=== PATIENT | male | born 1955 | race African-American/Black ===

== ENCOUNTER 2020-01-21 14:54 | Inpatient (IN) | payer OTHER ==
--- OUTSIDE RECORDS SUMMARY | 2020-01-21 14:56 | XMS REPORT | Clinical Summary ---
:1955 Author Organization [facility] Address [address] [place] [address] Care Team Providers Name Role Phone DIANNA Minersurveillance supervisor Provider Unavailable Allergies Active Allergy Reactions Severity Noted Date Comments Penicillins 08/17/2016 Medications Medication Sig Dispensed Refills Start Date End Date Status esomeprazole (NexIUM) 40 Take 40 mg by 1 06/20/2016 Active MG capsule mouth once daily. irbesartan (AVAPRO) 150 Take 150 mg by 1 06/02/2016 Active MG tablet mouth 2 (two) times a day. CIALIS 20 mg tablet as needed. 6 07/17/2016 Active phentermine (ADIPEX-P) Take 37.5 mg by 2 06/19/2016 Active 37.5 mg tablet mouth once daily. glycopyrrolate (ROBINUL) Take 2 mg by 0 07/31/2016 Active 2 MG tablet mouth 2 (two) times a day. clonIDINE (CATAPRES) 0.1 TAKE 1 TABLET BY 0 08/08/19 17 Active MG tablet MOUTH EVERY 8 HOURS NEEDED FOR BLOOD PRESSURE>170/100 Active Problems No known active problems Family History Medical History Relation Name Comments Heart attack Father Hypertension Mother Relation Name Status Comments Father Mother Social History Tobacco Use Types Packs/Day Years Used Date Never Smoker Alcohol Use Drinks/Week oz/Week Comments Yes occasional Sex Assigned at Date Recorded Not on file Job Start Date Occupation Industry Not on file Not on file Not on file Travel History Travel Start Travel End No recent travel history available. Last Filed Vital Signs Not on file Plan of Treatment Health Maintenance Due Date Last Done Comments COLONOSCOPY SCREENING 2004 SHINGLES VACCINES (#1) 2004 65+ PNEUMOCOCCAL VACCINE (1 of 2 - PCV13) 2019 INFLUENZA VACCINE 02/10/2020 Results Not on fileafter 01/20/2019 Advance Directives For more information, please contact: [phone] Type Date Recorded Patient Retail Warehouse Supervisor Explanati on Advance Directives, Living Will and Medical Power of Curriculum And Assessment Coordinator
[2020-01-21] MEDS ORDERED: dexAMETHasone 10 MG/ML VIAL ONE (15:39)
[2020-01-21 16:20] LABS: Absolute Lymphocytes (CBC) 0.7 K/uL (0.7-4.9); Basophils % 0.5 % (0-1.3); Hematocrit 48.6 % (39.6-49.0); Lymphocytes % 8.3 % (15.3-44.8); RBC Red Blood Cell Count 5.64 M/uL (4.33-5.43)
--- NOTE | 2020-01-21 16:37 | ER ---
Nurse's Notes [facility] Name: Sanjiv Torres Age: 64 yrs Sex: Male : 1955 Arrival Date: 01/21/2020 Time: 14:56 Bed 7 Private MD: Vi Miner H Diagnosis: Pneumonia due to other specified bacteria;Coronavirus infection, unspecified;Hypoxemia Presentation: 01/20 15:02 Chief complaint: Patient states: SOB, Covid + results today. Tested on Sunday. Pt c/o ks7 continued sob, sp02 90-91% at home, Tmax 101. Coronavirus screen: Client denies travel out of the [place] in the last 14 days. fever, shortness of breath, Client presents with at least one sign or symptom that may indicate coronavirus-19. Standard/surgical mask placed on the client. Client reports previous positive COVID test result. Date of collection: January 18, 2020. Ebola Screen: Patient negative for fever greater than or equal to 101.5 degrees Fahrenheit, and additional compatible Ebola Virus Disease symptoms Patient denies exposure to infectious person. Patient denies travel to an Ebola-affected area in the 21 days before illness onset. Initial Sepsis Screen: Does the patient meet any 2 criteria? No. Patient's initial sepsis screen is negative. Does the patient have a suspected source of infection? No. Patient's initial sepsis screen is negative. Risk Assessment: Do you want to hurt yourself or someone else? Patient reports no desire to harm self or others. Onset of symptoms was January 18, 2020. 15:02 Method Of Arrival: Ambulatory ks7 15:02 Acuity: MARKO 3 ks7 Triage Assessment: 15:05 General: Appears uncomfortable, Behavior is calm, cooperative. Pain: Denies pain. ks7 Respiratory: Reports shortness of breath at rest pain with respiration. Respiratory: Onset: The symptoms/episode began/occurred 1 week, the patient has moderate shortness of breath. GI: No deficits noted. Historical: - Allergies: 15:05 PENICILLINS; ks7 - Home Meds: 15:05 Avapro 75 mg Oral tab 1 tab once daily [Active]; hydrochlorothiazide 12.5 mg Oral cap 1 ks7 cap once daily [Active]; metoprolol tartrate 37.5 mg Oral tab 1 tab once daily [Active]; - PMHx: 15:05 Hypertension; ks7 - PSHx: 15:05 None; ks7 - Immunization history:: Adult Immunizations up to date. - Social history:: Smoking status: Patient denies any tobacco usage or history of. Screenin:02 Abuse screen: Denies threats or abuse. Denies injuries from another. Nutritional jl7 screening: No deficits noted. Tuberculosis screening: No symptoms or risk factors identified. Fall Risk IV access (20 points). Assessment: 15:40 General: Appears in no apparent distress. uncomfortable, Behavior is calm, cooperative, jl7 appropriate for age. Pain: Denies pain. Neuro: Level of Consciousness is awake, alert, obeys commands, Oriented to person, place, time, situation. Cardiovascular: Rhythm is sinus rhythm with unifocal PVCs. Respiratory: Airway is patent Respiratory effort is even, unlabored, Respiratory pattern is regular, symmetrical, not auscultated. GI: Abdomen is round obese. Derm: Skin is pink, warm \T\ dry. 17:01 Reassessment: VO to cancel COVID-19 swab and flu swab from Dr. Riggs. jl7 17:30 Reassessment: Patient appears in no apparent distress at this time. No changes from jl7 previously documented assessment. Patient and/or family updated on plan of care and expected duration. Pain level reassessed. Patient is alert, oriented x 3, equal unlabored respirations, skin warm/dry/pink. Vital Signs: 15:02 BP 134 / 67; Pulse 88; Resp 20; Temp 97.9(TE); Pulse Ox 90% on R/A; Weight 124.74 kg; ks7 Height 5 ft. 10 in. (177.80 cm); Pain 0/10; 16:02 BP 136 / 72; Pulse 77; Resp 23 S; Pulse Ox 95% on 3 lpm NC; jl7 17:30 BP 139 / 77; Pulse 75; Resp 23 S; Pulse Ox 94% on 3 lpm NC; jl7 15:02 Body Mass Index 39.46 (124.74 kg, 177.80 cm) ks7 ED Course: 14:56 Patient arrived in ED. ag5 14:57 Vi Miner DO is Private Physician. ag5 15:05 Triage completed. ks7 15:05 Arm band placed on right wrist. ks7 15:07 Steven Patterson PA is PHCP. cp 15:07 Alexis Ashraf MD is Attending Physician. cp 15:16 Samir Tucker, RN is Primary Nurse. jl7 15:40 Patient has correct armband on for positive identification. Placed in gown. Bed in low jl7 position. Call light in reach. Side rails up X 1. school bus monitor on. Pulse ox on. NIBP on. Warm blanket given. 15:40 Initial lab(s) drawn, by me, sent to lab. EKG done, by ED staff, reviewed by Steven [email or web address] PA. Inserted saline lock: 20 gauge in right antecubital area, using aseptic technique. Blood collected. 15:46 XRAY Chest (1 view) In Process Unspecified. EDMS 16:36 Curry Riggs DO is Hospitalizing Provider. cp 18:04 No provider procedures requiring assistance completed. Patient admitted, IV remains in jl7 place. intact, No redness/swelling at site. Administered Medications: 16:03 Drug: Decadron - Dexamethasone 6 mg Route: IVP; Site: right antecubital; jl7 18:04 Follow up: Response: No adverse reaction jl7 17:05 Not Given (Physician Discretion): Zithromax 500 mg IVPB once over 1 hrs; mix in 250 mL cp NS 17:20 Drug: Decadron - Dexamethasone 2 mg Route: IVP; Site: right antecubital; jl7 18:04 Follow up: Response: No adverse reaction jl7 Outcome: 16:36 Decision to Hospitalize by Provider. cp 18:04 Admitted to ICU accompanied by tech, via wheelchair, room 8, with oxygen, with chart, jl7 Report called to DIANNA Mendoza 18:04 Condition: stable 18:04 Discharge instructions given to patient, Instructed on the need for admit, Demonstrated understanding of instructions. 18:50 Patient left the ED. jl7 Signatures: Dispatcher [employer] EDWI Steven Patterson PA PA cp Leal, Jahala, RN RN [email or web address] Megan Martin 5 Maricruz Vazquez RN RN [email or web address] Corrections: (The following items were deleted from the chart) 18:04 16:02 BP 136 / 72; Pulse 77bpm; Resp 23bpm; Spontaneous; Pulse Ox 95% 2 lpm Nasal jl7 Cannula; jl7
--- NOTE | 2020-01-21 16:37 | EDPHYS ---
Physician Documentation [facility] Name: Sanjiv Torres Age: 64 yrs Sex: Male : 1955 Arrival Date: 01/21/2020 Time: 14:56 Bed 7 Private MD: Vi Miner H ED Physician Alexis Ashraf HPI: 01/20 15:19 This 64 yrs old Black Male presents to ER via Ambulatory with complaints of Shortness cp Of Breath, COVID+. 15:20 The patient has shortness of breath at rest. cp 15:20 Onset: The symptoms/episode began/occurred gradually. Duration: The symptoms are cp continuous, and are steadily getting worse. Associated signs and symptoms: Pertinent positives: non-productive cough, Pertinent negatives: chest pain, diaphoresis, fever, hemoptysis. Patient reports being tested for COVID-19 at [facility] on Sunday with results returning positive today. Historical: - Allergies: 15:05 PENICILLINS; ks7 - Home Meds: 15:05 Avapro 75 mg Oral tab 1 tab once daily [Active]; hydrochlorothiazide 12.5 mg Oral cap 1 ks7 cap once daily [Active]; metoprolol tartrate 37.5 mg Oral tab 1 tab once daily [Active]; - PMHx: 15:05 Hypertension; ks7 - PSHx: 15:05 None; ks7 - Immunization history:: Adult Immunizations up to date. - Social history:: Smoking status: Patient denies any tobacco usage or history of. ROS: 15:25 Respiratory: Positive for cough, shortness of breath, Negative for hemoptysis, wheezing.cp 15:25 Eyes: Negative for injury, pain, redness, and discharge. cp 15:25 Constitutional: Negative for body aches, chills, fever. 15:25 ENT: Negative for ear pain, sore throat, difficulty swallowing, difficulty handling secretions. 15:25 Cardiovascular: Negative for chest pain, edema. 15:25 Abdomen/GI: Negative for abdominal pain, nausea, vomiting, and diarrhea. 15:25 Skin: Negative for rash. 15:25 Neuro: Negative for altered mental status, dizziness, headache, syncope, weakness. 15:25 All other systems are negative. Exam: 15:30 Constitutional: The patient appears in no acute distress, alert, awake, cp non-diaphoretic, non-toxic, well developed, well nourished, obese. 15:30 Head/Face: Normocephalic, atraumatic. cp 15:30 Eyes: Periorbital structures: appear normal, Pupils: equal, round, and reactive to cp light and accomodation, Extraocular movements: intact throughout, Conjunctiva: normal, no exudate, no injection, Sclera: no appreciated abnormality, Lids and lashes: appear normal, bilaterally. 15:30 ENT: External ear(s): are unremarkable, Nose: is normal, Mouth: Lips: moist, Oral mucosa: moist, Posterior pharynx: is normal, airway is patent, no erythema, no exudate. 15:30 Neck: ROM/movement: is normal, is supple, no meningismus, no nuchal rigidity. 15:30 Chest/axilla: Inspection: normal, Palpation: is normal, no crepitus, no tenderness. 15:30 Cardiovascular: Rate: normal, Rhythm: regular, Edema: is not appreciated, JVD: is not appreciated. 15:30 Respiratory: mild respiratory distress is noted, Respirations: labored breathing, that is mild, shallow respirations, that is mild, Breath sounds: bronchial sounds, that are mild, are heard diffusely, stridor, is not appreciated, + upper airway congestion. wheezing: is not appreciated. 15:30 Abdomen/GI: Inspection: abdomen appears normal, Palpation: abdomen is soft and non-tender, in all quadrants. 15:30 Back: pain, is absent, ROM is normal. 15:30 Skin: no rash present. 15:30 Neuro: Orientation: to person, place \T\ time. Mentation: is normal, Motor: moves all fours, strength is normal, Sensation: is normal. 15:55 ECG was reviewed by the Attending Physician. cp Vital Signs: 15:02 BP 134 / 67; Pulse 88; Resp 20; Temp 97.9(TE); Pulse Ox 90% on R/A; Weight 124.74 kg; ks7 Height 5 ft. 10 in. (177.80 cm); Pain 0/10; 16:02 BP 136 / 72; Pulse 77; Resp 23 S; Pulse Ox 95% on 3 lpm NC; jl7 17:30 BP 139 / 77; Pulse 75; Resp 23 S; Pulse Ox 94% on 3 lpm NC; jl7 15:02 Body Mass Index 39.46 (124.74 kg, 177.80 cm) ks7 MDM: 15:18 Patient medically screened. cp 16:00 Differential diagnosis: Myocardial Infarction pneumonia, Pneumothorax pulmonary edema, cp Pulmonary Embolism Sepsis Unstable Angina. 16:34 Physician consultation: Curry Riggs DO was called at 16:35, was contacted at 16:35, cp regarding admission, to the telemetry unit. patient's condition, and will see patient in ED, shortly. 16:35 Data reviewed: vital signs, nurses notes, lab test result(s), EKG, radiologic studies, cp plain films, I have discussed the patient's presentation/case with the attending Emergency Department Physician; and as a result, I will admit patient. 16:35 Test interpretation: by ED physician or midlevel provider: ECG, chest xray shows cp bilateral infiltrates. Counseling: I had a detailed discussion with the patient and/or guardian regarding: the historical points, exam findings, and any diagnostic results supporting the discharge/admit diagnosis, lab results, radiology results, the need for further work-up and treatment in the hospital. 08 15:19 Order name: Basic Metabolic Panel; Complete Time: 16:50 cp 08/12 17:04 Interpretation: Normal except: GLUC 126; CRE 1.42; GFR 61; CA 7.9. cp 08/12 15:19 Order name: CBC with Diff cp 08/12 16:29 Interpretation: Normal except: RBC 5.64; KALPESH% 87.1; LYM% 8.3. cp /12 15:19 Order name: LFT's; Complete Time: 16:50 cp 08/12 15:19 Order name: Magnesium; Complete Time: 16:50 cp /12 15:19 Order name: NT PRO-BNP; Complete Time: 16:50 cp /12 15:19 Order name: PT-INR; Complete Time: 17:03 cp / 15:19 Order name: Troponin (emerg Dept Use Only); Complete Time: 16:50 cp /12 15:19 Order name: CRP; Complete Time: 16:50 cp 08/12 16:50 Interpretation: Abnormal: C-REACTIVE PROT 137.00. cp 01/20 15:19 Order name: D-Dimer; Complete Time: 17:03 cp 08/12 15:19 Order name: Fibrinogen; Complete Time: 17:03 cp 08/12 17:03 Interpretation: Abnormal: FIB 639. cp 08/12 15:19 Order name: XRAY Chest (1 view); Complete Time: 16:50 cp 08/12 15:19 Order name: EKG; Complete Time: 15:20 cp 0812 15:19 Order name: Cardiac monitoring; Complete Time: 15:59 cp 0812 15:19 Order name: EKG - Nurse/Tech; Complete Time: 15:59 cp 0812 15:19 Order name: IV Saline Lock; Complete Time: 15:59 cp 0812 15:19 Order name: Labs collected and sent; Complete Time: 15:59 cp 0812 15:19 Order name: O2 Per Protocol; Complete Time: 15:59 cp 0812 15:19 Order name: O2 Sat Monitoring; Complete Time: 15:59 cp 0812 16:34 Order name: Droplet/Contact Precautions; Complete Time: 16:38 cp 12 18:38 Order name: CBC Smear Scan EDMS EC:55 Rate is 79 beats/min. Rhythm is regular. TX interval is normal. QRS interval is normal. cp QT interval is normal. T waves are Inverted in leads III, aVR. Interpreted by me. Reviewed by me. Administered Medications: 16:03 Drug: Decadron - Dexamethasone 6 mg Route: IVP; Site: right antecubital; jl7 18:04 Follow up: Response: No adverse reaction jl7 17:05 Not Given (Physician Discretion): Zithromax 500 mg IVPB once over 1 hrs; mix in 250 mL cp NS 17:20 Drug: Decadron - Dexamethasone 2 mg Route: IVP; Site: right antecubital; jl7 18:04 Follow up: Response: No adverse reaction jl7 Disposition: 01/21 07:29 Co-signature as Attending Physician, Alexis Ashraf MD I agree with the assessment and kdr plan of care. Disposition: 01/21/20 16:36 Hospitalization ordered by Curry Riggs for Inpatient Admission. Preliminary diagnosis are Pneumonia due to other specified bacteria, Coronavirus infection, unspecified, Hypoxemia. - Bed requested for Intensive Care Unit. - Status is Inpatient Admission. jl7 - Condition is Stable. - Problem is new. - Symptoms have improved. Signatures: Dispatcher [employer] EDPA Melba Alfredo bd Alexis Ashraf MD MD [facility] Steven Patterson PA PA cp Samir Tucker RN RN jl7 Maricruz Vazquez, DIANNA RN ks7 Corrections: (The following items were deleted from the chart) 08 17:00 16:35 CORONAVIRUS ordered. EDPA EDMS 17:00 16:35 Influenza Screen (A ordered. EDPA EDPA 17:04 17:04 Normal except: GLUC 126; CRE 1.42; GFR 61. cp cp 17:13 16:36 Hospitalization Ordered by Curry Riggs DO for Inpatient Admission. Preliminary bd diagnosis is Pneumonia due to other specified bacteria; Coronavirus infection, unspecified; Hypoxemia. Bed requested for Telemetry/MedSurg (Inpatient). Status is Inpatient Admission. Condition is Stable. Problem is new. Symptoms have improved. cp 18:50 17:13 01/21/2020 16:36 Hospitalization Ordered by Curry Riggs DO for Inpatient jl7 Admission. Preliminary diagnosis is Pneumonia due to other specified bacteria; Coronavirus infection, unspecified; Hypoxemia. Bed requested for Intensive Care Unit. Status is Inpatient Admission. Condition is Stable. Problem is new. Symptoms have improved. bd 01/21 02:39 08 19:42 ECG was reviewed by the Attending Physician. cp cp 01/21 02:39 01/20 19:42 Rate is 96 beats/min. Rhythm is regular. TX interval is normal. QRS cp interval is normal. QT interval is normal. T waves are Inverted in lead aVR. Interpreted by me. Reviewed by me. cp 01/21 02:40 01/20 19:42 ECG was reviewed by the Attending Physician. cp cp 01/21 02:40 02:39 Rate is 79 beats/min. Rhythm is regular. TX interval is normal. QRS interval is cp normal. QT interval is normal. T waves are Inverted in leads III, aVR. Interpreted by me. Reviewed by me. cp
[2020-01-21 16:41] LABS: ALT/SGPT 23 U/L (12-78); AST/SGOT 28 U/L (15-37); Albumin 2.9 g/dL (3.4-5.0); Alkaline Phosphatase 43 U/L (45-117); BUN Blood Urea Nitrogen 17 mg/dL (7-18); Bicarbonate 27 mmol/L (21-32); Bilirubin Direct 0.2 mg/dL (0-0.2); Bilirubin Total 0.6 mg/dL (0.2-1.0); Glucose Level 126 mg/dL (74-106); Magnesium 2.1 mg/dL (1.8-2.4); NT PRO-BNP 221 pg/mL (<125); Potassium 3.6 mmol/L (3.5-5.1); Protein, Total 7.3 g/dL (6.4-8.2); Sodium Level 139 mmol/L (136-145); Troponin (Emerg Dept Use Only) < 0.02 ng/mL (0.0-0.045)
--- NOTE | 2020-01-21 16:46 | RAD REPORT ---
EXAM DESCRIPTION: Elly Single View01/21/2020 3:46 pm CLINICAL HISTORY: Chest pain COMPARISON: 1999 FINDINGS: The lungs appear clear of acute infiltrate. The heart is borderline enlarged IMPRESSION: No acute abnormalities displayed
[2020-01-21 16:56] LABS: Protime INR 1.12
--- NOTE | 2020-01-21 17:18 | P.HP ---
Certification for Inpatient Patient admitted to: Inpatient With expected LOS: >2 Midnights Patient will require the following post-hospital care: None Practitioner: I am a practitioner with admitting privileges, knowledge of patient current condition, hospital course, and medical plan of care. Services: Services provided to patient in accordance with Admission requirements found in Title 42 Section 412.3 of the Code of Federal Regulations Patient History Date of Service: 01/21/20 Primary Care Provider: Dr. Miner Reason for admission: Shortness of breath History of Present Illness: 64-year-old male with history of hypertension, sleep apnea and obesity. Patient reported fever and cough over the weekend. He was seen at [facility] on Sunday and released. Since that time he has been having more shortness of breath. Shortness of breath has gotten worse with exertion. He reports that he got a phone call from [facility] explain that he was positive for COVID 19. He reports that his was also tested positive but asymptomatic. He came to the ER for further evaluation. In the ER patient was evaluated. Patient found to have room-air saturations in the lower 80s. Patient required 4 L of nasal cannula. CBC unremarkable. CRP elevated at 137. D-dimer unremarkable. Chest x-ray shows COVID pneumonia pattern. Patient stable at this time. Patient admitted for further evaluation and treatment. When I saw the patient in the ER, patient appeared stable on 4 L. Patient reports history of sleep apnea using CPAP at night. He denies any smoking or alcohol. Allergies Penicillins Allergy (Unverified 09/03/17 10:58) Unknown Home medications list reviewed: Yes - Past Medical/Surgical History Diabetic: No -: Hypertension -: Obstructive sleep apnea on CPAP at night -: Obesity -: Right forearm surgery Psychosocial/ Personal History: Patient is - Family History Family History: Reviewed- Non-Contributory - Social History Smoking Status: Never smoker Alcohol use: No CD- Drugs: No Caffeine use: No Place of Residence: Home Review of Systems General: Fever, As per HPI Eyes: Unremarkable ENT: Unremarkable Respiratory: Cough, Shortness of Breath, SOB with Excertion, As per HPI Cardiovascular: Unremarkable Gastrointestinal: Unremarkable Genitourinary: Unremarkable Musculoskeletal: Unremarkable Integumentary: Unremarkable Neurological: Unremarkable Lymphatics: Unremarkable Physical Examination - Physical Exam General: Alert, In no apparent distress, Oriented x3, Cooperative, Mild distress HEENT: Atraumatic, Mucous membr. moist/pink (Increased nasal drainage) Neck: Supple Respiratory: Diminished (Diminished bilateral) Cardiovascular: Normal pulses, Regular rate/rhythm Gastrointestinal: Normal bowel sounds, Soft and benign, Non-distended, No tenderness, No masses, No rebound, No guarding Musculoskeletal: No erythema, No tenderness, No warmth Integumentary: No tenderness/swelling, No erythema, No warmth, No cyanosis Neurological: Normal speech, Normal strength at 5/5 x4 extr, Normal tone, Normal affect - Studies Laboratory Data (last 24 hrs) 01/21/20 15:57: PT 13.2 H, INR 1.12 01/21/20 15:57: WBC 8.2, Hgb 16.0, Hct 48.6, Plt Count 178 01/21/20 15:57: Sodium 139, Potassium 3.6, BUN 17, Creatinine 1.42 H, Glucose 126 H, Magnesium 2.1, Total Bilirubin 0.6, AST 28, ALT 23, Alkaline Phosphatase 43 L Assessment and Plan - Plan Impression: Dyspnea with exertion secondary to acute respiratory failure with hypoxia related to COVID 19 pneumonia Hypertension Obstructive sleep apnea on CPAP Obesity Plan: Dyspnea with exertion secondary to acute respiratory failure with hypoxia related to COVID 19 pneumonia: Patient will be admitted for further evaluation and treatment. Patient given Decadron in the ER. Will continue with IV steroids at this time. Will provide DVT prophylaxis-Lovenox. Will also provide supplements. Plan of care discussed with patient. He agrees with plan. Continue to wean off oxygen. If required patient may require high-flow oxygen or BiPAP. Patient uses CPAP at night. If the patient continues to worsen will need to consider convalescent plasma or Remdesivir. This was discussed in detail with the patient. Will continue to monitor closely. Will consult pulmonology for further recommendation. Hypertension: Restart metoprolol. Obtain and verify home medication. Obstructive sleep apnea on CPAP: Respiratory to provide BiPAP or CPAP at night. Obesity: Will calculate BMI. Discharge Plan: Home Plan to discharge in: 72 Hours - Advance Directives Does patient have a Living Will: No Does patient have a Durable POA for Healthcare: No - Code Status/Comfort Care Code Status Assessed: Yes (Patient is full code) Time Spent Managing Pts Care (In Minutes): 55
[2020-01-21] MEDS ORDERED: dexAMETHasone 4 MG/ML VIAL ONE (17:27)
[2020-01-21 18:38] LABS: Blood Morphology Comment NOT SEEN (NOT SEEN); Platelet Estimate ADEQ; Urine White Blood Cell Casts OK
[2020-01-21] MEDS ORDERED: ACETAMINOPHEN 500 MG TAB PO PRN (18:55)
[2020-01-21] MEDS ORDERED: ONDANSETRON 4 MG/2 ML VIAL IV PRN (18:55)
[2020-01-21] MEDS: METOPROLOL TAR 25 MG TAB PO SCH (20:44)
[2020-01-21] MEDS: METHYLPREDNISOLONE 125 MG INJ IV SCH ×2 (20:46→23:42)
[2020-01-22] MEDS: METOPROLOL TAR 25 MG TAB PO SCH ×2 (05:42→17:04)
[2020-01-22] MEDS: METHYLPREDNISOLONE 125 MG INJ IV SCH ×3 (05:43→17:04)
[2020-01-22 05:50] LABS: Ferritin 194.3 ng/mL (26-388)
--- NOTE | 2020-01-22 07:29 | EKG ---
Test Date: 2020-01-21 Test Time: 15:46:54 Cereal Chemist: DOM MEASUREMENT RESULTS: Intervals: Rate: 79 NM: 136 QRSD: 90 QT: 372 QTc: 426 Yoder: P: 47 NM: 136 QRS: 23 T: 16 INTERPRETIVE STATEMENTS: Sinus rhythm with premature atrial complexes Minimal voltage criteria for LVH, may be normal variant Borderline ECG Compared to ECG 09/03/2017 09:39:21 Atrial premature complex(es) now present Left ventricular hypertrophy now present Electronically Signed On 01-22-20 07:28:34 CDT by Jerry Parks
[2020-01-22] MEDS: PANTOPRAZOLE 40MG TABLET PO SCH (08:11)
[2020-01-22] MEDS: FOLIC ACID 1 MG TABLET PO SCH (08:11)
[2020-01-22] MEDS: THIAMINE HCL 100 MG TABLET PO SCH (08:11)
[2020-01-22] MEDS: ZINC SULFATE 220 MG CAP PO SCH (08:11)
[2020-01-22] MEDS: ENOXAPARIN 40 MG/0.4 ML SQ SCH (08:11)
--- NOTE | 2020-01-22 08:23 | P.CNS ---
Date of Consult: 01/22/20 Primary Care Provider: Dr. Miner Chief Complaint: Shortness of breath History of Present Illness: Patient is 64 years of age with a history of hypertension sleep apnea obesity admitted with fever cough shortness of breath and was positive for coronal virus was admitted with some respiratory failure is currently doing well Allergies Penicillins Allergy (Verified 01/21/20 23:39) Unknown Home Medications: Irbesartan [Avapro] 1 tab PO DAILY 01/21/20 Metoprolol Tartrate 37.5 mg PO DAILY 01/21/20 hydroCHLOROthiazide [Hydrochlorothiazide] 12.5 mg PO DAILY 01/21/20 - Past Medical/Surgical History Diabetic: No -: Hypertension -: Obstructive sleep apnea on CPAP at night -: Obesity -: Right forearm surgery Psychosocial/ Personal History: Patient is - Social History Alcohol use: No CD- Drugs: No Caffeine use: No Place of Residence: Home Physical Examination Temp Pulse Resp BP Pulse Ox 97.6 F 58 19 118/68 96 01/22/20 04:00 01/22/20 04:00 01/22/20 04:00 01/22/20 04:00 01/22/20 04:00 Laboratory Data (last 24 hrs) 01/21/20 15:57: PT 13.2 H, INR 1.12 01/21/20 15:57: WBC 8.2, Hgb 16.0, Hct 48.6, Plt Count 178 01/21/20 15:57: Sodium 139, Potassium 3.6, BUN 17, Creatinine 1.42 H, Glucose 1 26 H, Magnesium 2.1, Total Bilirubin 0.6, AST 28, ALT 23, Alkaline Phosphatase 43 L - Problems (1) Pneumonia due to human coronavirus Current Visit: Yes Status: Acute Plan: Patient is 64 years of age diagnosed with coronal virus admitted with a pneumonia hypoxemia patient's renal function little abnormal I still have elevated CRP and ferritin levels oxygenation satisfactory chest x-ray shows minimal interstitial changes possible discharge tomorrow
[2020-01-22] MEDS ORDERED: METHYLPREDNISOLONE 125 MG INJ IV ONE (09:00)
--- NOTE | 2020-01-22 12:42 | P.PN ---
Subjective Date of Service: 01/22/20 Primary Care Provider: Dr. Miner Chief Complaint: Shortness of breath Subjective: Doing well (Patient doing better.) Physical Examination - Vital Signs Temperature: 97.6 F Blood Pressure: 170/88 Pulse: 84 Respirations: 20 Pulse Ox (%): 92 - Physical Exam General: Alert, Cooperative HEENT: Atraumatic Neck: Supple Respiratory: Other (Patient on 3 L per nasal cannula) Cardiovascular: Normal pulses Neurological: Normal speech, Normal strength at 5/5 x4 extr, Normal tone, Normal affect - Studies Laboratory Data (last 24 hrs) 01/21/20 15:57: PT 13.2 H, INR 1.12 01/21/20 15:57: WBC 8.2, Hgb 16.0, Hct 48.6, Plt Count 178 01/21/20 15:57: Sodium 139, Potassium 3.6, BUN 17, Creatinine 1.42 H, Glucose 126 H, Magnesium 2.1, Total Bilirubin 0.6, AST 28, ALT 23, Alkaline Phosphatase 43 L Medications List Reviewed: Yes Assessment & Plan Discharge Plan: Home Plan to discharge in: 48 Hours Physician Review Additional Text: Impression: Dyspnea with exertion secondary to acute respiratory failure with hypoxia related to COVID 19 pneumonia Hypertension Obstructive sleep apnea on CPAP Acute renal insufficiency Obesity Plan: Dyspnea with exertion secondary to acute respiratory failure with hypoxia related to COVID 19 pneumonia: Patient appears improved. Continue monitor C reactive protein. Continue with IV steroids. Continue DVT prophylaxis. Case discussed with pulmonology. Will continue to try to wean off oxygen at this josh e. Options for convalescent plasma was addressed in detail with the patient. He understands this is not a definitive treatment. Education will be provided. He will further review and consider convalescent plasma. If agreeable will provide convalescent plasma. Will monitor closely. Encourage ambulation. Encourage incentive spirometer. Home medications reviewed. Will discontinue his medication by glycopyrrolate as this may cause increased pulmonary secretions and side affects. Anticipate improvement over the next 24-48 hr. Hypertension: Continue to adjust metoprolol. Hold Arb inhibitor and hydrochlorothiazide.. Obstructive sleep apnea on CPAP: Respiratory to provide BiPAP or CPAP at night. Acute renal insufficiency: Will recheck BMP tomorrow. Arb inhibitor and hydrochlorothiazide currently on hold. Obesity: BMI 39.5. Lifestyle modification address. Time Spent Managing Pts Care (In Minutes): 55
[2020-01-23] MEDS: METHYLPREDNISOLONE 125 MG INJ IV SCH ×5 (00:30→20:37)
[2020-01-23] MEDS: METOPROLOL TAR 25 MG TAB PO SCH (05:19)
[2020-01-23 06:20] LABS: C-Reactive Protein 69.1 mg/L (<3.00); Ferritin 280.9 ng/mL (26-388); Potassium 4.1 mmol/L (3.5-5.1)
[2020-01-23] MEDS: FOLIC ACID 1 MG TABLET PO SCH (08:03)
[2020-01-23] MEDS: THIAMINE HCL 100 MG TABLET PO SCH (08:03)
[2020-01-23] MEDS: ENOXAPARIN 40 MG/0.4 ML SQ SCH (08:03)
[2020-01-23] MEDS: PANTOPRAZOLE 40MG TABLET PO SCH (08:03)
[2020-01-23] MEDS: ZINC SULFATE 220 MG CAP PO SCH (08:03)
--- NOTE | 2020-01-23 08:12 | P.DS ---
Admission Date: 01/21/20 Discharge Date: 01/23/20 Primary Care Provider: Dr. Miner Disposition: ROUTINE DISCHARGE Discharge Condition: GOOD Reason for Admission: Shortness of breath Consultations: Pulmonary-Dr. Duncan Procedures: CXR: COMPARISON: 1999 FINDINGS: The lungs appear clear of acute infiltrate. The heart is borderline enlarged IMPRESSION: No acute abnormalities displayed Medical Problem List: Dyspnea with exertion secondary to acute respiratory failure with hypoxia related to COVID 19 pneumonia Hypertension Obstructive sleep apnea on CPAP Acute renal insufficiency Obesity Brief History of Present Illness: 64-year-old male with history of hypertension, sleep apnea and obesity. Patient reported fever and cough over the weekend. He was seen at [facility] on Sunday and released. Since that time he has been having more shortness of breath. Shortness of breath has gotten worse with exertion. He reports that he got a phone call from [facility] explain that he was positive for COVID 19. He reports that his was also tested positive but asymptomatic. He came to the ER for further evaluation. In the ER patient was evaluated. Patient found to have room-air saturations in the lower 80s. Patient required 4 L of nasal cannula. CBC unremarkable. CRP elevated at 137. D-dimer unremarkable. Chest x-ray shows COVID pneumonia pattern. Patient stable at this time. Patient admitted for further evaluation and treatment. When I saw the patient in the ER, patient appeared stable on 4 L. Patient reports history of sleep apnea using CPAP at night. He denies any smoking or alcohol. Hospital Course: Patient presented with dyspnea with exertion secondary to acute respiratory failure with hypoxia related to COVID 19 bilateral pneumonia. During the course of his stay patient received IV steroids and supplementation. Patient also required oxygen. His condition improved. Patient able to ambulate but still requires oxygen. Home oxygen will be arranged prior to discharge. At discharge patient still requiring 3 L per nasal cannula. Patient was seen by pulmonology. At discharge patient will have home oxygen arranged. Currently on 3 L per nasal cannula. Maintain oxygen sats above 93%. This can be weaned off over time with the help of pulmonology and PCP. At discharge patient will continue with prednisone 20 mg 1 pill twice daily for 5 days then 1 pill once daily for 5 days. Patient will continue with supplementation including melatonin 3 mg at bedtime, thiamine 100 mg daily and vitamin C daily. At discharge patient will continue with quarantine at home. Patient will continue with CDC guidelines. Recommend to maintain social distancing, face mask use and hand washing. Recommend to buy a pulse oximeter to monitor his oxygen level. Recommend to maintain oxygen saturations above 93%. Infection control will contact health department to follow his care as well. Recommend follow up with pulmonology in 1 week to follow up this hospitalization and continue his care. Recommend recheck chest x-ray in 2-4 weeks to monitor resolution. At discharge patient will establish care with PCP in 1 week to follow up his care as well. Patient with hypertension. Patient previously on Avapro, hydrochlorothiazide and metoprolol. Avapro and hydrochlorothiazide held due to acute renal insufficiency. Metoprolol was adjusted. At discharge blood pressure well controlled with metoprolol. At discharge patient will continue with metoprolol 25 mg 1 pill twice daily. Recommend to monitor blood pressure daily. Recommend to maintain blood pressure less 150/80. Further adjustment can be done by his PCP. Patient with obstructive sleep apnea on CPAP. Patient may continue with CPAP at night. Patient with acute renal insufficiency. As mentioned above hydrochlorothiazide, Avapro have been discontinued. Repeat lab shows improvement of renal function. Recommend to recheck lab-BMP in 1-2 weeks to follow resolution. Patient with excessive sweating. Patient takes glycopyrrolate. Will recommend to discontinue at this time due to COVID 19 infection. This medication can in inferior and cause potential lung side effects including infection, increased secretions. Once his COVID 19 has resolved then his PCP can consider restarting medication with the help of pulmonology. Patient with obesity. Lifestyle modification education provided. Vital Signs/Physical Exam: Temp Pulse Resp BP Pulse Ox 97.2 F 60 17 138/81 95 01/23/20 04:00 01/23/20 04:00 01/23/20 04:00 01/23/20 04:00 01/23/20 04:00 General: Alert, In no apparent distress, Oriented x3, Cooperative HEENT: Atraumatic Neck: Supple Respiratory: Other (patient breathing appropriately. Currently on 3 liters per nasal canula) Cardiovascular: Normal pulses Neurological: Normal speech, Normal strength at 5/5 x4 extr, Normal tone, Normal affect Laboratory Data at Discharge: WBC 8.2 K/uL (4.3-10.9) 01/21/20 15:57 Hgb 16.0 g/dL (13.6-17.9) 01/21/20 15:57 Hct 48.6 % (39.6-49.0) 01/21/20 15:57 Plt Count 178 K/uL (152-406) 01/21/20 15:57 PT 13.2 SECONDS (9.5-12.5) H 01/21/20 15:57 INR 1.12 01/21/20 15:57 Sodium 141 mmol/L (136-145) 01/23/20 05:32 Potassium 4.1 mmol/L (3.5-5.1) 01/23/20 05:32 BUN 20 mg/dL (7-18) H 01/23/20 05:32 Creatinine 1.13 mg/dL (0.55-1.3) 01/23/20 05:32 Glucose 168 mg/dL (74-106) H 01/23/20 05:32 Magnesium 2.5 mg/dL (1.8-2.4) H 01/22/20 04:49 Total Bilirubin 0.6 mg/dL (0.2-1.0) 01/21/20 15:57 AST 28 U/L (15-37) 01/21/20 15:57 ALT 23 U/L (12-78) 01/21/20 15:57 Alkaline Phosphatase 43 U/L (45-117) L 01/21/20 15:57 Home Medications: Ascorbate Calcium [Vitamin C] 500 mg PO DAILY #30 tablet 01/23/20 Metoprolol Tartrate [Lopressor*] 25 mg PO BID 6AM 6PM #60 tab 01/23/20 Thiamine HCl [Vitamin B-1*] 100 mg PO DAILY #30 tablet 01/23/20 predniSONE [Prednisone*] 20 mg PO SEECOM #15 tab 01/23/20 New Medications: Metoprolol Tartrate [Lopressor*] 25 mg PO BID 6AM 6PM #60 tab predniSONE [Prednisone*] 20 mg PO SEECOM #15 tab Thiamine HCl [Vitamin B-1*] 100 mg PO DAILY #30 tablet Ascorbate Calcium [Vitamin C] 500 mg PO DAILY #30 tablet Patient Discharge Instructions: 1. Recommend follow up with PCP in 1 week to follow up this hospitalization. 2. Patient presented with dyspnea with exertion secondary to acute respiratory failure with hypoxia related to COVID 19 bilateral pneumonia. During the course of his stay patient received IV steroids and supplementation. Patient also required oxygen. His condition improved. Patient able to ambulate but still requires oxygen. Home oxygen will be arrang ed prior to discharge. At discharge patient still requiring 3 L per nasal cannula. Patient was seen by pulmonology. At discharge patient will have home oxygen arranged. Currently on 3 L per nasal cannula. Maintain oxygen sats above 93%. This can be weaned off over time with the help of pulmonology and PCP. At discharge patient will continue with prednisone 20 mg 1 pill twice daily for 5 days then 1 pill once daily for 5 days. Patient will continue with supplementation including melatonin 3 mg at bedtime, thiamine 100 mg daily and vitamin C daily. At discharge patient will continue with quarantine at home. Patient will continue with CDC guidelines. Recommend to maintain social distancing, face mask use and hand washing. Recommend to buy a pulse oximeter to monitor his oxygen level. Recommend to maintain oxygen saturations above 93%. Infection control will contact health department to follow his care as well. Recommend follow up with pulmonology in 1 week to follow up this hospitalization and continue his care. Recommend recheck chest x-ray in 2-4 weeks to monitor resolution. At discharge patient will establish care with PCP in 1 week to follow up his care as well. 3. Patient with hypertension. Patient previously on Avapro, hydrochlorothiazide and metoprolol. Avapro and hydrochlorothiazide held due to acute renal insufficiency. Metoprolol was adjusted. At discharge blood pressure well controlled with metoprolol. At discharge patient will continue with metoprolol 25 mg 1 pill twice daily. Recommend to monitor blood pressure daily. Recommend to maintain blood pressure less 150/80. Further adjustment can be done by his PCP. 4. Patient with obstructive sleep apnea on CPAP. Patient may continue with CPAP at night. 5. Patient with acute renal insufficiency. As mentioned above hydrochlorothiazide, Avapro have been discontinued. Repeat lab shows improvement of renal function. Recommend to recheck lab-BMP in 1-2 weeks to follow resolution. 6. Patient with excessive sweating. Patient takes glycopyrrolate. Will recommend to discontinue at this time due to COVID 19 infection. This medication can in inferior and cause potential lung side effects including infection, increased secretions. Once his COVID 19 has resolved then his PCP can consider restarting medication with the help of pulmonology. 7. Patient with obesity. Lifestyle modification education provided. Diet: AHA Activity: Ad mar Time spent managing pt's care (in minutes): 55
[2020-01-23] MEDS ORDERED: METOPROLOL TARTRATE 5 MG/5 ML INJ IV STA (13:32)
[2020-01-23] MEDS: APIXABAN 5 MG TABLET PO SCH ×2 (13:58→20:37)
[2020-01-23] MEDS ORDERED: METOPROLOL TAR 25 MG TAB PO ONE (14:51)
[2020-01-23] MEDS ORDERED: METOPROLOL TAR 50 MG TAB PO SCH ×2 (15:30→21:00)
[2020-01-23] MEDS ORDERED: METOPROLOL TARTRATE 5 MG/5 ML INJ IV PRN (18:29)
[2020-01-23] MEDS ORDERED: DIGOXIN 0.25 MG/ML AMP IV SCH (19:00)
[2020-01-23] MEDS ORDERED: LOPERAMIDE HCL 2 MG CAPSULE PO PRN (21:32)
[2020-01-24] MEDS ORDERED: DIGOXIN 0.25 MG/ML AMP IV PRN (01:00)
[2020-01-24 05:34] LABS: C-Reactive Protein 36.2 mg/L (<3.00); Ferritin 240.9 ng/mL (26-388)
[2020-01-24 05:59] VITALS: BMI 39.5
[2020-01-24] MEDS: ZINC SULFATE 220 MG CAP PO SCH (08:02)
[2020-01-24] MEDS: METHYLPREDNISOLONE 125 MG INJ IV SCH (08:02)
[2020-01-24] MEDS: FOLIC ACID 1 MG TABLET PO SCH (08:03)
[2020-01-24] MEDS: APIXABAN 5 MG TABLET PO SCH (08:05)
[2020-01-24] MEDS: PANTOPRAZOLE 40MG TABLET PO SCH (08:05)
[2020-01-24] MEDS: THIAMINE HCL 100 MG TABLET PO SCH (08:05)
[2020-01-24 08:06] VITALS: BP 127/97
--- NOTE | 2020-01-24 08:11 | EKG ---
Test Date: 2020-01-23 Test Time: 13:13:55 Tile Decorator: MAIA MEASUREMENT RESULTS: Intervals: Rate: 138 [place]: QRSD: 86 QT: 306 QTc: 463 [place]: P: [place]: QRS: 24 T: 34 INTERPRETIVE STATEMENTS: Atrial fibrillation with rapid ventricular response Nonspecific T wave abnormality, probably digitalis effect Abnormal ECG Compared to ECG 01/21/2020 15:46:54 T-wave abnormality now present Sinus rhythm no longer present Atrial premature complex(es) no longer present Left ventricular hypertrophy no longer present Electronically Signed On 01-24-20 08:09:30 CDT by Jerry Parks
[2020-01-24 08:14] VITALS: TEMP 98.4
--- NOTE | 2020-01-24 08:17 | P.DS ---
Admission Date: 01/21/20 Discharge Date: 01/24/20 Primary Care Provider: Dr. Miner Disposition: ROUTINE DISCHARGE Discharge Condition: GOOD Reason for Admission: Shortness of breath Consultations: Pulmonary-Dr. Duncan Cardiology-Dr. Parks Procedures: CXR: COMPARISON: 1999 FINDINGS: The lungs appear clear of acute infiltrate. The heart is borderline enlarged IMPRESSION: No acute abnormalities displayed ECHO: Obtained. Medical Problem List: Dyspnea with exertion secondary to acute respiratory failure with hypoxia related to COVID 19 pneumonia New Onset atrial fibrillation Hypertension Obstructive sleep apnea on CPAP Acute renal insufficiency Obesity Brief History of Present Illness: 64-year-old male with history of hypertension, sleep apnea and obesity. Patient reported fever and cough over the weekend. He was seen at [facility] on Sunday and released. Since that time he has been having more shortness of breath. Shortness of breath has gotten worse with exertion. He reports that he got a phone call from [facility] explain that he was positive for COVID 19. He reports that his was also tested positive but asymptomatic. He came to the ER for further evaluation. In the ER patient was evaluated. Patient found to have room-air saturations in the lower 80s. Patient required 4 L of nasal cannula. CBC unremarkable. CRP elevated at 137. D-dimer unremarkable. Chest x-ray shows COVID pneumonia pattern. Patient stable at this time. Patient admitted for further evaluation and treatment. When I saw the patient in the ER, patient appeared stable on 4 L. Patient reports history of sleep apnea using CPAP at night. He denies any smoking or alcohol. Hospital Course: Patient presented with dyspnea with exertion secondary to acute respiratory failure with hypoxia related to COVID 19 bilateral pneumonia. During the course of his stay patient received IV steroids and supplementation. Patient also required oxygen. His condition improved. Patient able to ambulate but still requires oxygen. Home oxygen will be arranged prior to discharge. At discharge patient still requiring 3 L per nasal cannula. Patient was seen by pulmonology. At discharge patient will have home oxygen arranged. Currently on 3 L per nasal cannula. Maintain oxygen sats above 93%. This can be weaned off over time with the help of pulmonology and PCP. At discharge patient will continue with prednisone 20 mg 1 pill twice daily for 5 days then 1 pill once daily for 5 days. Patient will continue with supplementation including melatonin 3 mg at bedtime, thiamine 100 mg daily and vitamin C daily. At discharge patient will continue with quarantine at home. Patient will continue with CDC guidelines. Recommend to maintain social distancing, face mask use and hand washing. Re commend to buy a pulse oximeter to monitor his oxygen level. Recommend to maintain oxygen saturations above 93%. Infection control will contact health department to follow his care as well. Recommend follow up with pulmonology in 1 week to follow up this hospitalization and continue his care. Recommend recheck chest x-ray in 2-4 weeks to monitor resolution. At discharge patient will establish care with PCP in 1 week to follow up his care as well. Yesterday I had anticipated discharge but prior to discharge the patient developed new onset atrial fibrillation. Rate around 140. Patient was given IV metoprolol. Case discussed at length with cardiology and pulmonology. Patient was placed on anti coagulation therapy-Eliquis. His metoprolol has been adjusted. Rate now better controlled. Patient asymptomatic. Echo obtained. Patient stable for discharge. At discharge patient will continue with metoprolol 100 mg 1 pill twice daily and Eliquis 5 mg 1 pill twice daily. Education on AFib and Eliquis provided and address with patient and . Recommend follow up with cardiology in 2 weeks to follow up this hospitalization and further address his condition. Patient will require cardiac stress tests and possible cardioversion in the future if AFib persists. Patient with hypertension. Patient previously on Avapro, hydrochlorothiazide and metoprolol. Avapro and hydrochlorothiazide held due to acute renal insufficiency. Metoprolol was adjusted. As stated above patient will continue with metoprolol 100 mg 1 pill twice daily. Recommend to monitor blood pressure daily. Recommend to maintain blood pressure less 150/80. Further adjustment can be done by his PCP. Patient with obstructive sleep apnea on CPAP. Patient may continue with CPAP at night. Patient with acute renal insufficiency. As mentioned above hydrochlorothiazide, Avapro have been discontinued. Repeat lab shows improvement of renal function. Recommend to recheck lab-BMP in 1-2 weeks to follow resolution. Patient with excessive sweating. Patient takes glycopyrrolate. Will recommend to discontinue at this time due to COVID 19 infection. This medication can in inferior and cause potential lung side effects including infection, increased secretions. Once his COVID 19 has resolved then his PCP can consider restarting medication with the help of pulmonology. Patient with obesity. Lifestyle modification education provided. Vital Signs/Physical Exam: Temp Pulse Resp BP Pulse Ox 97 F 117 H 18 127/97 H 95 01/24/20 04:00 01/24/20 08:04 01/24/20 04:00 01/24/20 08:04 01/24/20 04:00 General: Alert, In no apparent distress HEENT: Atraumatic Neck: Supple Respiratory: Other (Patient breathing appropriately. Heart rate around 100) Cardiovascular: Irregular heart rate/rhythm (AFib rate around 100) Neurological: Normal speech, Normal strength at 5/5 x4 extr, Normal tone, Normal affect Laboratory Data at Discharge: WBC 8.2 K/uL (4.3-10.9) 01/21/20 15:57 Hgb 16.0 g/dL (13.6-17.9) 01/21/20 15:57 Hct 48.6 % (39.6-49.0) 01/21/20 15:57 Plt Count 178 K/uL (152-406) 01/21/20 15:57 PT 13.2 SECONDS (9.5-12.5) H 01/21/20 15:57 INR 1.12 01/21/20 15:57 Sodium 141 mmol/L (136-145) 01/23/20 05:32 Potassium 4.1 mmol/L (3.5-5.1) 01/23/20 05:32 BUN 20 mg/dL (7-18) H 01/23/20 05:32 Creatinine 1.13 mg/dL (0.55-1.3) 01/23/20 05:32 Glucose 168 mg/dL (74-106) H 01/23/20 05:32 Magnesium 2.5 mg/dL (1.8-2.4) H 01/22/20 04:49 Total Bilirubin 0.6 mg/dL (0.2-1.0) 01/21/20 15:57 AST 28 U/L (15-37) 01/21/20 15:57 ALT 23 U/L (12-78) 01/21/20 15:57 Alkaline Phosphatase 43 U/L (45-117) L 01/21/20 15:57 Home Medications: Ascorbate Calcium [Vitamin C] 500 mg PO DAILY #30 tablet 08/14/20 Thiamine HCl [Vitamin B-1*] 100 mg PO DAILY #30 tablet 01/23/20 predniSONE [Prednisone*] 20 mg PO SEECOM #15 tab 01/23/20 Apixaban [Eliquis] 5 mg PO BID #60 tablet 01/24/20 Metoprolol Tartrate 100 mg PO BID #60 tablet 01/24/20 New Medications: Apixaban [Eliquis] 5 mg PO BID #60 tablet Metoprolol Tartrate 100 mg PO BID #60 tablet predniSONE [Prednisone*] 20 mg PO SEECOM #15 tab Thiamine HCl [Vitamin B-1*] 100 mg PO DAILY #30 tablet Ascorbate Calcium [Vitamin C] 500 mg PO DAILY #30 tablet Patient Discharge Instructions: 1. Recommend follow up with PCP in 1 week to follow up this hospitalization. 2. Patient presented with dyspnea with exerti on secondary to acute respiratory failure with hypoxia related to COVID 19 bilateral pneumonia. During the course of his stay patient received IV steroids and supplementation. Patient also required oxygen. His condition improved. Patient able to ambulate but still requires oxygen. Home oxygen will be arranged prior to discharge. At discharge patient still requiring 3 L per nasal cannula. Patient was seen by pulmonology. At discharge patient will have home oxygen arranged. Currently on 3 L per nasal cannula. Maintain oxygen sats above 93%. This can be weaned off over time with the help of pulmonology and PCP. At discharge patient will continue with prednisone 20 mg 1 pill twice daily for 5 days then 1 pill once daily for 5 days. Patient will continue with supplementation including melatonin 3 mg at bedtime, thiamine 100 mg daily and vitamin C daily. At discharge patient will continue with quarantine at home. Patient will continue with CDC guidelines. Recommend to maintain social distancing, face mask use and hand washing. Recommend to buy a pulse oximeter to monitor his oxygen level. Recommend to maintain oxygen saturations above 93%. Infection control will contact health department to follow his care as well. Recommend follow up with pulmonology in 1 week to follow up this hospitalization and continue his care. Recommend recheck chest x-ray in 2-4 weeks to monitor resolution. At discharge patient will establish care with PCP in 1 week to follow up his care as well. 3. Yesterday I had anticipated discharge but prior to discharge the patient developed new onset atrial fibrillation. Rate around 140. Patient was given IV metoprolol. Case discussed at length with cardiology and pulmonology. Patient was placed on anti coagulation therapy-Eliquis. His metoprolol has been adjusted. Rate now better controlled. Patient asymptomatic. Echo obtained. Patient stable for discharge. At discharge patient will continue with metoprolol 100 mg 1 pill twic e daily and Eliquis 5 mg 1 pill twice daily. Education on AFib and Eliquis provided and address with patient and . Recommend follow up with cardiology in 2 weeks to follow up this hospitalization and further address his condition. Patient will require cardiac stress tests and possible cardioversion in the future if AFib persists. 4. Patient with hypertension. Patient previously on Avapro, hydrochlorothiazide and metoprolol. Avapro and hydrochlorothiazide held due to acute renal insufficiency. Metoprolol was adjusted. As stated above patient will continue with metoprolol 100 mg 1 pill twice daily. Recommend to monitor blood pressure daily. Recommend to maintain blood pressure less 150/80. Further adjustment can be done by his PCP. 5. Patient with obstructive sleep apnea on CPAP. Patient may continue with CPAP at night. 6. Patient with acute renal insufficiency. As mentioned above hydrochlorothiazide, Avapro have been discontinued. Repeat lab shows improvement of renal function. Recommend to recheck lab-BMP in 1-2 weeks to follow resolution. 7. Patient with excessive sweating. Patient takes glycopyrrolate. Will recommend to discontinue at this time due to COVID 19 infection. This medication can in inferior and cause potential lung side effects including infection, increased secretions. Once his COVID 19 has resolved then his PCP can consider restarting medication with the help of pulmonology. 8. Patient with obesity. Lifestyle modification education provided. Diet: AHA Activity: Ad mar Time spent managing pt's care (in minutes): 55
[2020-01-24] MEDS ORDERED: METOPROLOL TAR 50 MG TAB PO SCH (09:00)
[2020-01-24 09:10] LABS: Thyroid Stimulating Hormone 1.09 uIU/mL (0.360-3.740)
[2020-01-24 09:31] VITALS: O2SAT 90
--- NOTE | 2020-01-24 09:52 | CON ---
Date of Consultation: 01/24/2020 The patient was admitted on 01/21/2020 with COVID pneumonia. Reason For Consultation: The consult was done on 01/24/2020 for new onset atrial fibrillation. History Of Present Illness: Mr. Torres is a 64-year-old white male, has a history of hypertension, g astroesophageal reflux disease, obesity, and sleep apnea. Came in with a COVID pneumonia, was on CPA P and BiPAP for a while. He was actually getting ready to be discharged yesterday, but he went into atrial fibrillation rapid ventricular response. He typically takes metoprolol 25 mg b.i.d. at home f or his blood pressure. He was clinically stable without any symptoms from his atrial fibrillation. We suggested increasing the metoprolol to 50 mg 3 times a day and given digoxin and on that regimen, his heart rate was down to about 100 to 110 without any symptoms. He was already started on Eliquis 5 mg b.i.d. Echocardiogram which was done showed an ejection fraction of 69% with normal wall motion , normal left atrial size, normal left ventricular size and no thrombus. His last chest x-ray was ac tually normal. His initial EKG shows sinus rhythm with PACs. The rest of the blood work was pretty unremarkable on 01/24/2020. Mr. Torres was not seen. This was a consultation by phone with Dr. Octavia thomas. I suggested the patient gets discharged on metoprolol 100 b.i.d. with Eliquis and I will see him in the office in the next 2 weeks. I will keep an eye on his heart rhythm. He may need an MPI down the road to rule out CAD. PRASAD/PAWEL Voice ID: [id number] Report ID: [id number]
--- NOTE | 2020-01-26 08:37 | ECHO ---
HEIGHT: 5 ft 10 in WEIGHT: 275 lb 12.8 oz DATE OF STUDY: 01/23/[address]: Curry Riggs DO 2-DIMENSIONAL: YES M.MODE: YES DOPPLER: YES COLOR FLOW: YES TDS: NO PORTABLE: YES DEFINITY: NO BUBBLE STUDY: NO DIAGNOSIS: ATRIAL FIBRILLATION CARDIAC HISTORY: CATHERIZATION: NO SURGERY: NO PROSTHETIC VALVE: NO PACEMAKER: NO MEASUREMENTS (cm) DIASTOLIC (NORMALS) SYSTOLIC (NORMALS) IVSd 1.2 (0.6-1.2) LA Diam 4.0 (1.9-4.0) LVEF 69% LVIDd 4.7 (3.5-5.7) LVIDs 2.9 (2.0-3.5) %FS 38% LVPWd 1.3 (0.6-1.2) Ao Diam 2.9 (2.0-3.7) 2 DIMENSIONAL ASSESSMENT: RIGHT ATRIUM: NORMAL LEFT ATRIUM: NORMAL RIGHT VENTRICLE: NORMAL LEFT VENTRICLE: NORMAL TRICUSPID VALVE: NORMAL MITRAL VALVE: NORMAL PULMONIC VALVE: NORMAL AORTIC VALVE: NORMAL PERICARDIAL EFFUSION: NONE AORTIC ROOT: NORMAL LEFT VENTRICULAR WALL MOTION: NORMAL. DOPPLER/COLOR FLOW: NORMAL. COMMENTS: NORMAL LEFT VENTRICULAR SIZE AND FUNCTION - EJECTION FRACTION 69%. NO WALL MOTION ABNORMALITY. ATRIAL FIBRILLATION NOTED - NO THROMBUS. TECHNOLOGIST: ROBINA GORDON
== END 2020-01-24 15:08 | disposition home or self-care (01) | DRG 177 ==
LOC: ER 14:54 → ERHOLD 17:03 → 3RD-ICU 18:02
PROVIDERS: ADMIT Family Medicine; ATTEND Family Medicine
DX: U07.1 COVID-19 (principal); J12.89 Other viral pneumonia; J96.01 Acute respiratory failure with hypoxia; I10 Essential (primary) hypertension; G47.33 Obstructive sleep apnea (adult) (pediatric); N28.9 Disorder of kidney and ureter, unspecified; I48.91 Unspecified atrial fibrillation; E66.9 Obesity, unspecified; Z68.39 Body mass index [BMI] 39.0-39.9, adult; Z79.899 Other long term (current) drug therapy; Z88.0 Allergy status to penicillin
CPT/HCPCS: 36415; 71045; 80048; 80076; 82728; 83735; 83880; 84439; 84443; 84484; 85025; 85379; 85384; 85610; 86140; 87040; 93005; 93306; 94660; 94760; 96374; 99285; J1100; J1160; J1650; J2930

== ENCOUNTER 2022-08-28 14:15 | Inpatient (IN) | payer OTHER ==
--- OUTSIDE RECORDS SUMMARY | 2022-08-28 14:21 | XMS REPORT | Continuity of Care Document ---
:1955 Author Organization [facility] t Address [address] [place] [address] [place] [id number] Care Team Providers Name Role Phone Kristofer BUSTAMANTE, Tyshawn Primary Care Physician Unavailable ADONIS PRATT Attending Clinician Unavailable Alexey Santos MD Attending Clinician ALEXEY SANTOS Attending Clinician Unavailable CHERYL STEPHEN Attending Clinician Unavailable Abram Gross Attending Clinician Unavailable SURENDRA MARTINEZ Attending Clinician Unavailable Ismael Martinez MD Attending Clinician CHERYL STEPHEN Admitting Clinician Unavailable Vi Miner Admitting Clinician Unavailable Payers Payer Name Policy Type Policy Number Effective Date Expiration Date S karson CIGNA II [id number] 2013 00:00:00 OPEN ACCESS [id number] 2021 PLUS - CIGNA 00:00:00 CIGNA C1 [id number] [facility] CIGNA C1 [id number] [facility] Problems Condition Condition Condition Status Onset Resolution Last Treating Co mments Source Name Details Category Date Date Treatment Clinician Date No known No known Disease Unive rs active active ity of problems problems [facility] Lower Lower Problem Active Common urinary urinary Spirit tract tract - [facility] symptoms symptoms St due to due to [facility] benign benign Medical prostatic prostatic Cent er hypertroph hyperplasi y a Impotence ED Problem Active Common of organic (erectile Spi rit origin dysfunctio - CHI n) [facility] Allergies, Adverse Reactions, Alerts Allergy Allergy Status Severity Reaction(s) Onset Inactive Treating Comm ents Source Name Type Date Date Clinician Penicill DA Active U [facility] ins 02-24 [place] 00:00: d 00 [facility] Penicill DA Active U SYNCOPE [facility] ins 02-24 [place] 00:00: d 00 [facility] Penicill DA Active U RASH-HIVES [facility] ins 02-11 [place] 00:00: d 00 [facility] Penicill DA Active U [facility] ins 02-11 [place] 00:00: d 00 [facility] Penicill Propensi Active Method i ins ty to 08-17 st adverse 00:00: Hospita reaction 00 l s to drug Penicill Propensi Active Method i ins ty to 3 st adverse 00:00: Hospita reaction 00 l s to drug Penicill DA Active U [facility] ins 12-20 [place] 00:00: d 00 [facility] Penicill DA Active U [facility] ins 12-20 [place] 00:00: d 00 [facility] Penicill Propensi Active [facility] ins ty to 06-11 College adverse 00:00: of reaction 00 Medicin s to e drug NO KNOWN Drug Active Univers ALLERGIE Class ity of S [facility] Family History Family Member Diagnosis Comments Start Date Stop Date Source Natural father Heart attack [facility] Natural mother [facility]pertension [facility] Social History Social Habit Start Date Stop Date Quantity Comments Source Exposure to Not sure University of SARS-CoV-2 [place] [facility] (event) Branch History of [facility] - Tobacco Use [facility] Tobacco use and 2020-11-10 2020-11-10 Never used [facility] of exposure 00:00:00 00:00:00 Medicine Alcohol intake 2016-08-17 2016-08-17 Current drinker of Me [facility]odist 00:00:00 00:00:00 alcohol (finding) Hospita l Alcohol Comment 2016-08-17 2016-08-17 occasional [facility] 00:00:00 00:00:00 Hospital Sex Ass[birth year] At [birth year] [facility] 00:00:00 00:00:00 Hospital Smoking Status Start Date Stop Date Source Unknown if ever smoked [facility] Branch Never Smoker [facility] Medications Ordered Filled Start Stop Current Ordering Indication Dosage Frequency Signature Comments Components Source Medication Medication Date Date Medication? Clinician (SIG) Name Name irbesartan Yes 150mg Take 150 Un [place] 150 mg 3-31 mg by ity of tablet 13:06: mouth at [place] 18 bedtime. Medical Branch glycopyrrol Yes 2mg Take 2 mg U nivers ate 2 mg 3-31 by mouth 3 ity o f tablet 13:06: (three) [place] 18 times Medical daily. Branch hydroCHLORO Yes 12.5mg Take 12.5 Univers thiazide 3-31 mg by ity of 12.5 mg 13:06: mouth [place] capsule 18 daily. Medical Branch esomeprazol Yes 40mg Take 40 mg Univers e 40 mg 3-31 by mouth ity of capsule 13:06: [facility] breakfast. Medical Branch metoprolol Yes 100mg Take 100 Un [place] succinate 3-31 mg by ity of XL 100 mg 13:06: mouth [place] 24 hr 18 daily. Medical tablet Branch phentermine Yes 37.5mg Take 37.[address] [facility] (ADIPEX-P) 6-02 mg by [place] 37.5 MG 12:38: mouth of tablet 52 daily. Medicin e spironolact 2020- No 25mg Take 25 mg [facility] one 6-02 06-02 by mouth [place] (ALDACTONE) 12:38: 00:00 daily. of 25 MG 44 :00 Medicin tablet e clonidine Yes .1mg Take 0.1 [facility] (CATAPRES) 6-02 mg by [place] 0.1 MG 12:38: mouth 3 of tablet 05 times Medicin daily. e irbesartan Yes 150mg Take 150 [facility] (AVAPRO) 6-02 mg by [place] 150 MG 12:38: mouth two of tablet 05 times Medicin daily. e etodolac Yes 500mg Take 500 [facility] (LODINE) 5-17 mg by [place] 500 MG 00:00: mouth as of tablet 00 needed. Medicin e esomeprazol Yes 40mg Take [address] [facility] e (NEXIUM) 5-07 by mouth Colle ge 40 MG 00:00: daily. of capsule 00 Medicin e hydrochloro Yes 12.5mg Take 12.[address] [facility] thiazide 5-07 mg by [place] 12.5 MG 00:00: mouth of TABS 00 daily. Medicin e Tamsulosin Yes .4mg Take 0.4 [place] HCl 0.4 MG 4-14 mg by [place] CAPS 00:00: mouth of 00 daily. Medicin e metoprolol Yes 100mg Take 100 [facility] (LOPRESSOR) 3-09 mg by [place] 100 MG 00:00: mouth two of tablet 00 times Medicin daily. e Glycopyrrol Yes 2mg Take 2 mg [facility] ate 2 MG 3-09 by mouth College TABS 00:00: two times of 00 daily. Medicin e Tamsulosin Tamsulosin 2020- No 1{capsu QD Tamsulosin HCl 0.4 MG HCl 0.4 MG 06-25 le} HCl 0.4 MG 00:00: 00:00 00 :00 Bactrim DS Bactrim DS 2020- No 1{table BID Bactrim DS 800-160 MG 800-160 MG 06-25 t} 800-160 MG 00:00: 00:00 00 :00 clonIDINE Yes TAKE 1 Method i (CATAPRES) 2-[address] 0.1 MG 00:00: MOUTH Hospita tablet 00 EVERY 8 l HOURS NEEDED FOR BLOOD PRESSURE>1 70/100 clonIDINE Yes TAKE 1 Method i (CATAPRES) 2-[address] 0.1 MG 00:00: MOUTH Hospita tablet 00 EVERY 8 l HOURS NEEDED FOR BLOOD PRESSURE>1 70/100 glycopyrrol Yes 2mg Q.5D Take 2 mg M ethodi ate 2-[address] (ROBINUL) 2 00:00: (two) Hospi ta MG tablet 00 times a l day. glycopyrrol 0 Yes 2mg Q.5D Take 2 mg M ethodi ate 2-[address] (ROBINUL) 2 00:00: (two) Hospi ta MG tablet 00 times a l day. CIALIS 20 2016-0 Yes as needed. Me [facility] mg tablet 2- st 00:00: Hospita 00 l CIALIS 20 2016-0 Yes as needed. [facility] mg tablet 2- st 00:00: Hospita 00 l esomeprazol Yes 40mg QD Take 40 mg [facility] (NexIUM) 1-[address] 40 MG 00:00: once Hospita capsule 00 daily. l esomeprazol Yes 40mg QD Take 40 mg [facility] (NexIUM) 1-[address] 40 MG 00:00: once Hospita capsule 00 daily. l phentermine Yes 37.5mg QD Take 37.5 [facility] (ADIPEX-P) 1-[address] 37.5 mg 00:00: mouth once Hosp denisha tablet 00 daily. l phentermine Yes 37.5mg QD Take 37.5 [facility] (ADIPEX-P) 1-[address] 37.5 mg 00:00: mouth once Hosp denisha tablet 00 daily. l irbesartan 2015-06 Yes 150mg Q.5D Take 150 [facility] (AVAPRO) 2-[address] 150 MG 00:00: mouth 2 Hospita tablet 00 (two) l times a day. irbesartan 2015-06 Yes 150mg Q.5D Take 150 [facility] (AVAPRO) 2-[address] 150 MG 00:00: mouth 2 Hospita tablet 00 (two) l times a day. Clonidine Clonidine No 1{table QD Clonidine HCl 0.1 MG HCl 0.1 MG t} HCl 0.1 MG Glycopyrrol Glycopyrrol No 1{table QD Glycopyrro ate 2 MG ate 2 MG t} late 2 MG Etodolac Etodolac No 1{table BID Etodolac 500 MG 500 MG t_with_ 500 MG food} Spironolact Spironolact No 1{table Spironolac one 25 MG one 25 MG t} tone 25 MG Esomeprazol Esomeprazol No QD Esomeprazo e Magnesium e Magnesium le 40 MG 40 MG Magnesium 40 MG Clonidine Clonidine No 1{table QD Clonidine HCl 0.1 MG HCl 0.1 MG t} HCl 0.1 MG Esomeprazol Esomeprazol No QD Esomeprazo e Magnesium e Magnesium le 40 MG 40 MG Magnesium 40 MG Etodolac Etodolac No 1{table BID Etodolac 500 MG 500 MG t_with_ 500 MG food} Spironolact Spironolact No 1{table Spironolac one 25 MG one 25 MG t} tone 25 MG Glycopyrrol Glycopyrrol No 1{table QD Glycopyrro ate 2 MG ate 2 MG t} late 2 MG Immunizations Ordered Filled Immunization Date Status Comments Sourc e Immunization Name Name SARS-COV-2 COVID-19 2021-05-17 Completed [facility] ([employer] Pay[facility])/J&J VACCINE 00:00:00 [facility] Vital Signs Vital Name Observation Time Observation Value Comments Source Body temperature 2021-09-08 18:01:00 35.94 [facility] Body height 2021-09-08 18:01:00 177.8 cm [facility] Body weight 2021-09-08 18:01:00 133.085 kg [facility] BMI 2021-09-08 18:01:00 42.10 kg/m2 [facility] Systolic blood 2020-11-10 17:29:00 154 mm[Hg] [facility] Medicine Diastolic blood 2020-11-10 17:29:00 86 mm[Hg] [facility] Medicine Heart rate 2020-11-10 17:29:00 60 /min [facility] Respiratory rate 2020-11-10 17:29:00 16 /min [facility] Body height 2020-11-10 17:29:00 179.1 cm [facility] Body weight 2020-11-10 17:29:00 133.358 kg [facility] BMI 2020-11-10 17:29:00 41.59 kg/m2 [facility] Oxygen saturation in 2020-11-10 17:29:00 98 /min [facility] Arterial blood by Medicine Pulse oximetry Systolic blood 2020-11-10 17:29:00 154 mm[Hg] [facility] Medicine Diastolic blood 2020-11-10 17:29:00 86 mm[Hg] [facility] Medicine Heart rate 2020-11-10 17:29:00 60 /min [facility] Respiratory rate 2020-11-10 17:29:00 16 /min [facility] Body height 2020-11-10 17:29:00 179.1 cm [facility] Body weight 2020-11-10 17:29:00 133.358 kg [facility] BMI 2020-11-10 17:29:00 41.59 kg/m2 [facility] Oxygen saturation in 2020-11-10 17:29:00 98 /min [facility] Arterial blood by Medicine Pulse oximetry height 2020-06-25 09:00:00 70 [in_i] [facility] weight 2020-06-25 09:00:00 295 [lb_av] [facility] temperature 2020-06-25 09:00:00 97.9 [degF] [facility] bmi 2020-06-25 09:00:00 42.32 kg/m2 [facility] oximetry 2020-06-25 09:00:00 93 % [facility] blood pressure 2020-06-25 09:00:00 163 mm[Hg] [facility] - systolic [facility] blood pressure 2020-06-25 09:00:00 82 mm[Hg] [facility] - diastolic [facility] Procedures Procedure Date / Time Performing Clinician Source Performed ELECTROCARDIOGRAM COMPLETE 2020-11-10 17:55:31 Ismael Martinez [facility] Plan of Care Planned Activity Planned Date Details Comments Source Future Scheduled 2022-08-28 COVID-[address] Test 14:20:21 (#1) [code = Hospital COVID-19 VACCINE (#1)] Future Scheduled 2022-08-28 COLONOSCOPY [facility] Test 14:20:21 SCREENING [code = Hospital COLONOSCOPY SCREENING] Future Scheduled 2022-08-28 SHINGLES VACCINES [facility] Test 14:20:21 (1 of 2) [code = Hospital SHINGLES VACCINES (1 of 2)] Future Scheduled 2022-08-28 65+ PNEUMOCOCCAL [facility] Test 14:20:21 VACCINE (1 - PCV) Hospital [code = 65+ PNEUMOCOCCAL VACCINE (1 - PCV)] Future Scheduled 2022-08-28 INFLUENZA VACCINE [facility] Test 14:20:21 [code = INFLUENZA Hospital VACCINE] Future Scheduled 2020-11-[address] [facility] Col lege Test 13:03:01 malignant neoplasm of Medici ne of colon (procedure) [code = 481356355] Future Scheduled 2020-11-10 COVID-[address] [facility] College Test 13:03:01 (1) [code = of Medicine COVID-19 Vaccine (1)] Future Scheduled 2020-11-[address] [facility] Adelina ege Test 13:03:01 (ADULT) [code = of Medicine TETANUS SHOT (ADULT)] Future Scheduled 2020-11-[address] [facility] Adelina ege Test 13:03:01 screening of Medicine (procedure) [code = 683646852] Future Scheduled 2020-11-10 ZOSTER VACCINE (1 [facility] Test 13:03:01 of 2) [code = of Medicine ZOSTER VACCINE (1 of 2)] Future Scheduled 2020-11-10 FALL SCREEN [code = [facility] Test 13:03:01 FALL SCREEN] of Medicine Future Scheduled 2020-11-10 PNEUMOVAX >=[address] [facility] Co llege Test 13:03:01 (PPSV23) [code = of Medicine PNEUMOVAX >=65 (PPSV23)] Future Scheduled 2020-11-10 FLU VACCINE > [address] [facility] C ollege Test 13:03:01 MONTHS [code = FLU of Medici ne VACCINE > 6 MONTHS] Future Scheduled 2020-11-10 TREADMILL, NO 1 Occurrences [facility] Test 13:02:39 IMAGING [code = starting of Medicine 46508] 11/10/2020 until 11/10/2021 Future Scheduled 2020-11-10 HOLTER MONITOR 3 TO 1 Occurrences [facility] Test 13:02:39 7 DAYS [code = starting of Medicine 03221D] 11/10/2020 until 11/10/2021 Future Scheduled COVID-[address] Test (1) [code = Hospital COVID-19 VACCINE (1)] Future Scheduled COLONOSCOPY [facility] Test SCREENING [code = Hospital COLONOSCOPY SCREENING] Future Scheduled SHINGLES VACCINES Method ist Test (#1) [code = Hospital SHINGLES VACCINES (#1)] Future Scheduled 65+ PNEUMOCOCCAL [facility] Test VACCINE (1 of 1 - Hospital PPSV23) [code = 65+ PNEUMOCOCCAL VACCINE (1 of 1 - PPSV23)] Future Scheduled INFLUENZA VACCINE Method ist Test [code = INFLUENZA Hospital VACCINE] Encounters Start End Encounter Admission Attending Care Care Encounter Source Date/Time Date/Time Type Type Clinicians Facility Department ID 2021-07-06 Outpatient [facility] [id number] Common 12:21:33 [id number] [facility] 2021-09-23 2021-09-23 Outpatient Abdulaziz PRATT [facility] [id number] Univers 08:00:00 08:00:00 ADONIS clay [facility] 2021-09-08 2021-09-08 [facility] [id number] Univers 13:15:00 13:30:00 Visit Alexey MCKEON 350.1.13.10 i ty [facility] [id number] [id number] [place] [id number] Branch 2021-09-08 2021-09-08 Outpatient Abdulaziz SANTOS [facility] [id number] Univers 13:15:00 13:15:00 ALEXEY clay [facility] 2021-09-04 2021-09-06 Outpatient KEYANA STEPHEN MED [id number] KEYANA 18:15:00 12:05:00 CHERYL 2021-02-24 2021-02-25 Inpatient Abram Muñoz [facility] [id number] [id number] [facility] 10:00:00 06:02:00 91 [facility] 2020-11-17 2020-11-17 Outpatient [facility] [id number] [facility] 13:53:27 16:08:40 Chris man of Medicin e 2020-11-17 2020-11-17 Outpatient DAMIAN MARTINEZ [facility] [id number] [facility] 13:52:53 16:02:49 SURENDRA Chris man of Medicin e 2020-11-10 2020-11-10 Office DAMIAN Martinez [id number] 12:17:07 12:57:07 Visit [place] AMBULATOR 350.1.13.21 Y [id number] [id number] 2020-11-10 2020-11-10 Office DAMIAN Martinez [id number] [facility] 12:17:07 12:57:07 Visit [place] AMBULATOR 350.1.13.21 College Y 0.2.7.2.686 of [id number] [facility] jean 375 e 2020-08-06 2020-08-06 NON-BILLAB STLC [facility] [id number] Common 00:00:00 00:00:00 LE VISIT Spiri t - [facility] 2020-06-25 2020-06-25 OFFICE [facility] [id number] Co mmon 00:00:00 00:00:00 VISIT NEW Spir it PT LEVEL 3 - [facility] Results Test Description Test Time Test Comments Results Result Sour e Comments - XR CHEST 1 V 2021-02-24 14:00:00 [facility] 1955 Sex: M Name: TRE PEARCE : 1955 Age/S: 65 / M [id number] [place] Unit #: [id number] Loc: [place] [address] Phys: Yvonne Isaac MD Acct: [id number] Dis Date: Status: PRE SDC PHONE #: [phone] Exam Date: 02/24/2021 1110 FAX #: Reason: PRE-OP EXAMS: CPT: [id number] XR CHEST 1 V 81259 Fluoro Time: DAP (Gy m2): Air Kerma (mGy): REASON FOR EXAM: Cardiorespiratory clearance for surgery. COMPARISON: None. Chest, single view, frontal projection. The lungs are well-inflated and clear. Heart size is normal. No effusion or pneumothorax can be seen. Osseous structures appear to be intact. IMPRESSION: No acute cardiopulmonary disease. Location: [facility] at 1400 Reported and signed by: Sean Anderson M.D. CC: Vi Miner DO; Abram Gross MD; Yvonne Isaac MD PAGE 1 Signed Report Name: TRE PEARCE : 1955 Age/S: 65 / M [id number] [place] Unit #: [id number] Loc: [place] [address] Phys: Yvonne Isaac MD Acct: [id number] Dis Date: Status: PRE SDC PHONE #: [phone] Exam Date: 02/24/2021 1110 FAX #: Reason: PRE-OP EXAMS: CPT: [id number] XR CHEST 1 V 36828 Fluoro Time: DAP (Gy m2): Air Kerma (mGy): (Continued) Technologist: Ulises Rosas, RT(R)(CT) Trnscb Date/Time: 02/24/2021 (1400) [id number] Orig Print D/T: S: 02/24/2021 (1403) PAGE 2 Signed Report COVID 19 INHOUSE 2021-02-24 11:40:00 Test Item Value Reference Range Interpretation Comme nts COVID 19 INHOUSE AG (test code = NEGATIVE Negative Per block cleaner, negative [id number]) results should be treated aspresumptive a nd, if inconsistent wi th clinical signs andsymptoms or necessary for patient managem ent, should betested with a n alternative molecular assay . Negative resultsdo not p reclude SARS-CoV-2 infection and s hould not be usedas the sole basis for patient management deci sions. Negative results should be considered in the context of apatient's recent exposures, hist ory, presence of clinicalsigns a nd symptoms consistent with COVID-19. BASIC METABOLIC [id number] 11:35:00 Test Item Value Reference Range Interpretation Comments SODIUM (test code = NA) 142 mmol/L 134-147 N POTASSIUM (test code = 4.1 mmol/L 3.4-5.0 N K) CHLORIDE (test code = 106 mmol/L 100-108 N CL) CARBON DIOXIDE (test 30 mmol/L 21-32 N code = CO2) ANION GAP (test code = 6.0 GAP calc 4.0-15.0 N GAP) GLUCOSE (test code = 116 MG/DL 70-110 H GLU) BLOOD UREA NITROGEN 12 MG/DL 7-18 N (test code = BUN) GLOMERULAR FILTRATION >=60 max estimate >60 RATE (test code = GFR) estGFR CREATININE (test code = 1.1 MG/DL 0.8-1.3 N CREAT) CALCIUM (test code = CA) 9.2 MG/DL 8.5-10.1 N BASIC METABOLIC [id number] 11:26:00 Test Item Value Reference Range Interpretation Comments SODIUM (test code = NA) mmol/L 134-147 POTASSIUM (test code = mmol/L 3.4-5.0 K) CHLORIDE (test code = mmol/L 100-108 CL) CARBON DIOXIDE (test mmol/L 21-32 code = CO2) ANION GAP (test code = GAP calc 4.0-15.0 GAP) GLUCOSE (test code = 116 MG/DL 70-110 H GLU) BLOOD UREA NITROGEN 12 MG/DL 7-18 N (test code = BUN) GLOMERULAR FILTRATION >=60 max estimate >60 RATE (test code = GFR) estGFR CREATININE (test code = 1.1 MG/DL 0.8-1.3 N CREAT) CALCIUM (test code = CA) 9.2 MG/DL 8.5-10.1 N PROTHROMBIN [id number] 11:19:00 Test Item Value Reference Range Interpretation Comments PT PATIENT (test 10.8 SECONDS 9.3-12.9 N code = PTP) INTERNATIONAL NORMAL 0.96 INR Unit 0.8-1.2 N TARGE T INR BY RATIO (test code = INDICATIO N Indication INR) INR1. Prophylax is of venous thrombos is 2.0 - 3.0 (orthoped ic surgery), Proph ylaxis of venous throm bosis (other than hig h-risk surgery), Treat ment of Deep Vein Thrombosis/Pulm onary Embolism, Preve ntion of systemic emb olism - Tissue heart va lves, Acute Myocardia l Infarction (to prevent systemic emboli sm), Valvular heart disease, Acute Myocardial Infa rction (to prevent sys temic embolism), Valv ular heart disease, Atrial Fibrillation, Bileaflet mecha nical valve in aortic position.2. Mec hanical prosthetic valv es (high risk), 2. 5 - 3.5 Presence of Lup us Anticoagulant o r Antiphospholipi d Antibodies, Pre vention of systemic emb olism - Acute Myocardia l Infarction (to prevent recurrent infar ct). THROMBOPLASTIN TIME [id number] 11:19:00 Test Item Value Reference Range Interpretation Comments THROMBOPLASTIN TIME PARTIAL 31.3 SECONDS 26-35 N (test code = PTT) CBC W/AUTO [id number] 11:16:00 Test Item Value Reference Range Interpretation Comments WHITE BLOOD CELL (test code = 7.8 K/mm3 3.5-11.0 N WBC) RED BLOOD CELL (test code = 5.26 M/mm3 4.70-6.10 N RBC) HEMOGLOBIN (test code = HGB) 15.1 G/DL 12.3-15.9 N HEMATOCRIT (test code = HCT) 46.1 % 35.8-46.7 N MEAN CELL VOLUME (test code = 87.6 Fl 86.3-98.9 N MCV) MEAN CELL HGB (test code = MCH) 28.7 pg 28.9-34.4 L MEAN CELL HGB CONCETRATION 32.8 G/DL 32.1-34.5 N (test code = MCHC) RED CELL DISTRIBUTION WIDTH 13.8 SD 11.5-14.5 N (test code = RDW) PLATELET COUNT (test code = 184 K/mm3 150-450 N PLT) MEAN PLATELET VOLUME (test code 10.70 fL 7.0-9.6 H = MPV) NEUTROPHIL % (test code = NT%) 47.1 % 40-76 N IMMATURE GRANULOCYTE % (test 0.4 % 0.0-5.0 N code = IG%) LYMPHOCYTE % (test code = LY%) 40.1 % 20.5-51.1 N MONOCYTE % (test code = MO%) 10.2 % 1.7-9.3 H EOSINOPHIL % (test code = EO%) 1.8 % 0.0-6.0 N BASOPHIL % (test code = BA%) 0.4 % 0.0-2.0 N NUCLEATED RBC % (test code = 0.3 /100WBC% 0.0-1.0 N NRBC%) NEUTROPHIL # (test code = NT#) 3.7 K/mm3 1.8-7.6 N IMMATURE GRANULOCYTE # (test 0.03 x10 3/uL 0.00-0.03 N code = IG#) LYMPHOCYTE # (test code = LY#) 3.1 K/mm3 0.6-3.0 H MONOCYTE # (test code = MO#) 0.8 K/mm3 0.2-1.5 N EOSINOPHIL # (test code = EO#) 0.1 K/mm3 0.0-0.4 N BASOPHIL # (test code = BA#) 0.0 K/mm3 0.0-0.2 N NUCLEATED RBC # (test code = 0.0 K/mm3 0.00-0.01 N NRBC#) MANUAL DIFF REQUIRED (test code NO DIFF/SCN CRITERIA = MDIFF)
[2022-08-28 15:35] LABS: Absolute Lymphocytes (CBC) 2.6 K/uL (0.7-4.9); Hematocrit 47.4 % (39.6-49.0); MCV 88.1 fL (80-100); MPV 8.5 fL (7.6-11.3); RBC Red Blood Cell Count 5.37 M/uL (4.33-5.43)
[2022-08-28 15:55] LABS: Potassium 3.8 mEq/L (3.5-5.1); Troponin High Sensitivity 19.5 pg/mL (<58.9)
--- NOTE | 2022-08-28 16:10 | RAD REPORT ---
EXAM DESCRIPTION: Elly Single View08/28/2022 3:47 pm CLINICAL HISTORY: Chest pain COMPARISON: 2019 FINDINGS: Mild patchy lung opacities bilaterally Heart is borderline enlarged IMPRESSION: Mild patchy lung opacities may indicate pneumonia
--- NOTE | 2022-08-28 17:10 | EDPHYS ---
Physician Documentation [facility] Name: Sanjiv Torres Age: 67 yrs Sex: Male : 1955 Arrival Date: 08/28/2022 Time: 14:22 Bed 5 Private MD: ED Physician Yung Julien HPI: 08/28 14:57 This 67 yrs old Black Male presents to ER via Ambulatory with complaints of Flank Pain. m 14:57 Is a 59-year-old female with history of hypertension the presents emerged department jm with complaints of left-sided chest pain, shortness of breath. Symptoms initially began this past Sunday. Patient was seen at a stand-alone ER and prescribed doxycycline after being diagnosed with pneumonia. Patient states that he has had increased pain and also subsequently had 2 episodes of syncope which she stated was secondary to coughing fits.. Historical: - Allergies: 14:57 PENICILLINS; aa5 - PMHx: 14:57 Hypertension; aa5 14:59 Sleep apnea; aa5 - Immunization history:: Adult Immunizations unknown. - Social history:: Smoking status: Patient denies any tobacco usage or history of. ROS: 14:57 Constitutional: Negative for fever, chills, and weight loss. [facility] 14:57 Cardiovascular: Positive for chest pain. 14:57 Respiratory: Positive for cough. 14:57 Neuro: Positive for syncope. 14:57 All other systems are negative. Exam: 14:57 Constitutional: This is a well developed, well nourished patient who is awake, alert, jm and in no acute distress. Head/Face: atraumatic. Eyes: EOMI, no conjunctival erythema appreciated ENT: Moist Mucus Membranes Neck: Trachea midline, Supple Chest/axilla: Normal chest wall appearance and motion. Cardiovascular: Regular rate and rhythm. No edema appreciated Respiratory: Normal respirations, no respiratory distress appreciated Abdomen/GI: Non distended Back: Normal ROM Skin: General appearance color normal MS/ Extremity: Moves all extremities, no obvious deformities appreciated, no edema noted to the lower extremities Neuro: Awake and alert Psych: Behavior is normal, Mood is normal, Patient is cooperative and pleasant Vital Signs: 14:55 BP 153 / 74; Pulse 79; Resp 20 S; Temp 98(TE); Pulse Ox 90% on R/A; Weight 133.81 kg aa5 (R); Height 5 ft. 10 in. (R); 16:40 BP 147 / 78; Pulse 78; Resp 20; Pulse Ox 93% on R/A; vg1 17:30 BP 126 / 99; Pulse 65; Resp 18; Pulse Ox 95% on R/A; vg1 18:00 BP 148 / 65; Pulse 79; Resp 20; Pulse Ox 93% on R/A; vg1 14:55 Body Mass Index 42.33 (133.81 kg, 177.8 cm) aa5 MDM: 14:57 Patient medically screened. [facility] 19:35 Differential diagnosis: Pneumonia, acute MO, pulmonary embolism. Data reviewed: vital [facility] signs, nurses notes, radiologic studies, plain films. Consideration of Admission/Observation Patient was admitted/placed on observation. Management of patient was discussed with the following: Hospitalist: RUEL Albert. I considered the following discharge prescriptions or medication management in the emergency department Medications were administered in the Emergency Department. See MAR. Counseling: I had a detailed discussion with the patient and/or guardian regarding: the historical points, exam findings, and any diagnostic results supporting the discharge/admit diagnosis, lab results, radiology results, the need for further work-up and treatment in the hospital. 08/28 14:57 Order name: Basic Metabolic Panel; Complete Time: 16:32 [facility] 08/28 14:57 Order name: CBC with Diff; Complete Time: 15:37 [facility] 08/28 14:57 Order name: Troponin HS; Complete Time: 16:32 [facility] 08/28 16:48 Order name: Blood Culture Adult (2) [facility] 08/28 16:48 Order name: Lactate w/ 2H reflex if indic.; Complete Time: 17:34 [facility] 08/28 17:23 Order name: SARS RAPID; Complete Time: 18:16 eb 08/28 18:34 Order name: NT PRO-BNP; Complete Time: 18:35 [facility] 08/28 18:34 Order name: T4 Free; Complete Time: 18:35 [facility] 08/28 18:34 Order name: Magnesium; Complete Time: 18:35 [facility] 08/28 18:34 Order name: Thyroid Stimulating Hormone; Complete Time: 18:35 [facility] 08/28 14:57 Order name: XRAY Chest (1 view); Complete Time: 16:32 [facility] 08/28 14:57 Order name: EKG; Complete Time: 14:58 [facility] 08/28 14:57 Order name: Cardiac monitoring; Complete Time: 16:51 [facility] 08/28 14:57 Order name: EKG - Nurse/Tech; Complete Time: 16:56 [facility] 08/28 14:57 Order name: IV Saline Lock; Complete Time: 16:56 [facility] 08/28 14:57 Order name: Labs collected and sent; Complete Time: 16:56 [facility] 08/28 14:57 Order name: O2 Per Protocol; Complete Time: 16:51 [facility] 08/28 14:57 Order name: O2 Sat Monitoring; Complete Time: 16:51 [facility] Administered Medications: 17:45 Drug: levofloxacin IVPB 750 mg Volume: 150 ml; Route: IVPB; Infused Over: 90 mins; vg1 Site: right antecubital; 19:18 Follow up: IV Status: Completed infusion; IV Intake: 150ml vg1 Disposition Summary: 08/28/22 17:09 Hospitalization Ordered Hospitalization Status: Inpatient Admission [facility] Provider: Muna Gibson Location: Telemetry/MedSur (Inpatient) [facility] Condition: Stable jm Problem: new jmm Symptoms: are unchanged [facility] Bed/Room Type: Standard [facility] Room Assignment: [facility](08/28/22 18:31) Diagnosis - Pneumonia - Hypoxia jmm - Syncope jm Forms: - Medication Reconciliation Form jmm - SBAR form m Signatures: Dispatcher [employer] Neftali Siegel PA PA jmm Calderon, Audri RN RN aa5 Yana Decker Victoria RN RN vg1 Corrections: (The following items were deleted from the chart) 18:31 17:09 [facility] eb
--- NOTE | 2022-08-28 17:10 | ER ---
Nurse's Notes [facility] Name: Sanjiv Torres Age: 67 yrs Sex: Male : 1955 Arrival Date: 08/28/2022 Time: 14:22 Bed 5 Private MD: Diagnosis: Pneumonia - Hypoxia;Syncope Presentation: 08/28 14:55 Chief complaint: Patient states: "I went to [place] [facility] and they said I have a mild aa5 Pneumonia". Pt states "now I have this rib pain on my left side and I passed out twice today". Pt reports he is taking doxycycline and albuterol. Onset of symptoms was August 28, 2022. 14:55 Coronavirus screen: cough unrelated to allergies. aa5 14:55 Method Of Arrival: Ambulatory aa5 14:55 Ebola Screen: Patient denies travel to an Ebola-affected area in the 21 days before aa5 illness onset. Initial Sepsis Screen: Does the patient meet any 2 criteria? No. Patient's initial sepsis screen is negative. Does the patient have a suspected source of infection? Yes:. Risk Assessment: Do you want to hurt yourself or someone else? Patient reports no desire to harm self or others. 14:55 Acuity: MARKO 2 aa5 Historical: - Allergies: 14:57 PENICILLINS; aa5 - PMHx: 14:57 Hypertension; aa5 14:59 Sleep apnea; aa5 - Immunization history:: Adult Immunizations unknown. - Social history:: Smoking status: Patient denies any tobacco usage or history of. Screenin:45 [facility] ED Fall Risk Assessment (Adult) History of falling in the last 3 months, vg1 including since admission No falls in past 3 months (0 pts) Confusion or Disorientation No (0 pts) Intoxicated or Sedated No (0 pts) Impaired Gait No (0 pts) Mobility Assist Device Used No (0 pt) Altered Elimination No (0 pt) Score/Fall Risk Level 0 - 2 = Low Risk Oriented to surroundings, Maintained a safe environment, Educated pt \\T\\ family on fall prevention, incl call for assistance when getting out of bed, Assessed \\T\\ reinforced patient's understanding of fall precautions. Abuse screen: Denies threats or abuse. Denies injuries from another. Nutritional screening: No deficits noted. Tuberculosis screening: No symptoms or risk factors identified. Assessment: 16:45 General: Appears in no apparent distress. uncomfortable, Behavior is calm, cooperative. vg1 Pain: Complains of pain in left lateral anterior chest Pain currently is 10 out of 10 on a pain scale. Pain began 2-3 days ago. Neuro: Level of Consciousness is awake, alert, obeys commands, Oriented to person, place, time, situation. Cardiovascular: Patient's skin is warm and dry. Respiratory: Airway is patent Respiratory effort is even, unlabored, Breath sounds are clear bilaterally. GI: No signs and/or symptoms were reported involving the gastrointestinal system. : No signs and/or symptoms were reported regarding the genitourinary system. EENT: No signs and/or symptoms were reported regarding the EENT system. Derm: Skin is pink, warm \\T\\ dry. Musculoskeletal: Circulation, motion, and sensation intact. 17:00 Reassessment: first set of blood cultures sent. mb9 17:35 Reassessment: second set of blood cultures sent. mb9 17:45 Reassessment: Patient appears in no apparent distress at this time. No changes from vg1 previously documented assessment. Patient and/or family updated on plan of care and expected duration. Pain level reassessed. Patient is alert, oriented x 3, equal unlabored respirations, skin warm/dry/pink. Vital Signs: 14:55 BP 153 / 74; Pulse 79; Resp 20 S; Temp 98(TE); Pulse Ox 90% on R/A; Weight 133.81 kg aa5 (R); Height 5 ft. 10 in. (R); 16:40 BP 147 / 78; Pulse 78; Resp 20; Pulse Ox 93% on R/A; vg1 17:30 BP 126 / 99; Pulse 65; Resp 18; Pulse Ox 95% on R/A; vg1 18:00 BP 148 / 65; Pulse 79; Resp 20; Pulse Ox 93% on R/A; vg1 14:55 Body Mass Index 42.33 (133.81 kg, 177.8 cm) aa5 ED Course: 14:22 Patient arrived in ED. rg4 14:22 Neftali Maciel PA is PHCP. [facility] 14:22 Yung Julien MD is Attending Physician. jm 14:55 Arm band placed on. aa5 14:57 Triage completed. aa5 15:49 XRAY Chest (1 view) In Process Unspecified. EDMS 16:41 Nya Cardozo, RN is Primary Nurse. vg1 16:45 Patient has correct armband on for positive identification. Placed in gown. Bed in low vg1 position. Call light in reach. Side rails up X2. Client placed on continuous cardiac and pulse oximetry monitoring. NIBP monitoring applied. 16:45 No provider procedures requiring assistance completed. Inserted saline lock: 20 gauge vg1 in right antecubital area, using aseptic technique. ,using aseptic technique. COMPLETED BY ED STAFF. 17:08 Muna Gibson MD is Hospitalizing Provider. jmm 17:35 Inserted saline lock: 22 gauge in right hand, using aseptic technique. mb9 17:50 SARS RAPID Sent. vg1 19:46 Patient admitted, IV remains in place. ll3 Administered Medications: 17:45 Drug: levofloxacin IVPB 750 mg Volume: 150 ml; Route: IVPB; Infused Over: 90 mins; vg1 Site: right antecubital; 19:18 Follow up: IV Status: Completed infusion; IV Intake: 150ml vg1 Medication: 16:45 VIS not applicable for this client. vg1 Intake: 19:18 IV: 150ml; Total: 150ml. vg1 Outcome: 17:09 Decision to Hospitalize by Provider. m 19:46 Admitted to Tele accompanied by tech, via wheelchair, room 402. ll3 19:46 Condition: stable 19:46 Instructed on the need for admit. 19:47 Patient left the ED. ll3 Signatures: Dispatcher [employer] EDMS Neftali Maciel PA PA m Misti Klein, RN RN aa5 Fernanda Cardozo rg4 Nya Cardozo, RN RN vg1 Charles Aranda RN RN ll3 Jessie Alba RN RN mb9 Corrections: (The following items were deleted from the chart) 14:59 14:55 Acuity: MARKO 3 aa5 aa5 15:00 14:55 Pulse 79bpm; Resp 20bpm; Spontaneous; Pulse Ox 90% RA; Temp 98F Temporal; 133.81 aa5 kg Reported; Height 5 ft. 10 in. Reported; BMI: 42.3; aa5 17:01 16:45 Respiratory: Airway is patent Respiratory effort is even, unlabored, vg1 vg1
[2022-08-28] MEDS ORDERED: HYDROCODONE/APAP 5/325 MG TAB PO PRN (17:46)
[2022-08-28] MEDS ORDERED: ACETAMINOPHEN 325 MG TABLET PO PRN (17:46)
[2022-08-28] MEDS ORDERED: Levofloxacin 750mg IV 750 MG/150 ML BAG IV ONE (17:47)
[2022-08-28] MEDS ORDERED: ONDANSETRON 4 MG/2 ML VIAL IV PRN (17:48)
--- NOTE | 2022-08-28 17:51 | P.HP ---
Certification for Inpatient Patient admitted to: Inpatient With expected LOS: >2 Midnights Patient will require the following post-hospital care: None Practitioner: I am a practitioner with admitting privileges, knowledge of patient current condition, hospital course, and medical plan of care. Services: Services provided to patient in accordance with Admission requirements found in Title 42 Section 412.3 of the Code of Federal Regulations Patient History Date of Service: 08/28/22 Reason for admission: Chest pain, SOB History of Present Illness: Patient is a 67-year-old male with a past medical history significant for FEMI, hypertension, BPH, obesity, GERD who presents with complaint of left chest wall pain onset 3 days ago. Patient rated pain as 10/10 in severity and described pain as stabbing in quality. Patient initially reported that he started having coughing episodes and shortness of breath 5 days ago. Patient reported that he went to an outside ER facility where he was diagnosed with pneumonia. Patient was placed on antibiotics and cough medications on discharge home. Patient reported that symptoms did not respond to medication therapy and became worse over time. Patient reported associated signs and symptoms of headache, bilateral lower extremity edema and lightheadedness. Patient denies any other signs or symptoms. Symptoms are aggravated or relieved by nothing. Patient decided to present to the hospital due to worsening symptoms. Of note, patient reported that sometimes his coughing episodes is so severe and that he had a syncopal episode last week and another this week. Allergies Penicillins Allergy (Verified 01/21/20 23:39) Unknown Home Medications: Albuterol Sulfate [Proair Respiclick] 90 mcg IH Q6HP PRN 08/28/22 Doxycycline Hyclate 100 mg PO BID 08/28/22 Esomeprazole Mag Trihydrate [Nexium] 40 mg PO DAILY 08/28/22 Finasteride 5 mg PO DAILY 08/28/22 Glycopyrrolate 2 mg PO BID 08/28/22 Guaifen W/Codeine Syrup [ROBITUSSIN A-C Syrup*] 5 ml PO Q6HP PRN 08/28/22 Irbesartan 150 mg PO BID 08/28/22 Metoprolol Tartrate 100 mg PO BID 08/28/22 NIFEdipine [Nifedipine ER] 60 mg PO DAILY 08/28/22 hydroCHLOROthiazide [Hydrochlorothiazide] 12.5 mg PO DAILY 08/28/22 - Past Medical/Surgical History Diabetic: No -: Hypertension -: Obstructive sleep apnea on CPAP at night -: Obesity -: Right forearm surgery Psychosocial/ Personal History: Patient is - Family History Family History: Reviewed- Non-Contributory - Social History Smoking Status: Never smoker Alcohol use: No CD- Drugs: No Caffeine use: No Place of Residence: Home Review of Systems General: Other Eyes: Unremarkable ENT: Unremarkable Respiratory: Cough, Shortness of Breath, SOB with Excertion Cardiovascular: Light Headedness Gastrointestinal: Unremarkable Genitourinary: Unremarkable Musculoskeletal: Pedal edema Integumentary: Unremarkable Neurological: Other (headache ) Lymphatics: Unremarkable Physical Examination - Physical Exam General: Alert, In no apparent distress, Oriented x3, Cooperative HEENT: Atraumatic, PERRLA, Mucous membr. moist/pink, EOMI, Sclerae nonicteric Neck: Supple, 2+ carotid pulse no bruit, No LAD, Without JVD or thyroid abnormality Respiratory: Diminished Cardiovascular: Regular rate/rhythm, Normal S1 S2, Edema Capillary refill: <2 Seconds Gastrointestinal: Normal bowel sounds, Non-distended, No tenderness Musculoskeletal: No tenderness, Swelling Integumentary: No rashes, No significant lesion Neurological: Normal speech, Normal strength at 5/5 x4 extr, Normal tone, Normal affect Lymphatics: No axilla or inguinal lymphadenopathy - Studies Laboratory Data (last 24 hrs) 08/28/22 15:24: WBC 8.90, Hgb 15.8, Hct 47.4, Plt Count 212 08/28/22 15:24: Sodium 136, Potassium 3.8, BUN 12, Creatinine 1.11, Glucose 119 H Assessment and Plan - Plan -- Pneumonia. Chest x-ray indicates mild patchy lung opacities which may indicate pneumonia. Patient placed on antibiotics, neb treatment with Atrovent\albuterol. Antitussives on board. Continue O2 therapy. -- Chest pain. Likely atypical--Secondary to pneumonia. Serial troponins negative x2. Echocardiogram pending. D-dimer pending to assess for PE. Continue supportive care. --FEMI. Patient placed on CPAP. -- Bilateral lower extremity edema. BNP elevated at 411. Patient given one- time dose of Lasix. Echocardiogram pending to assess cardiac structures and functions. Continue supportive care. --Class II obesity. Likely secondary to excess calories intake. Patient counseled on weight reduction, diet and excise therapy. --Headache. Tylenol as needed. --CKD 2. Stable. We will continue to monitor renal functions. --BPH. Continue home medications. --Hypertension. Poorly controlled. Continue home medication and hydralazine prn --GERD. Continue home medication. --Syncope. likely vasovagal. Echocardiogram pending to assess cardiac Structures and function. We will get some orthostatic vital signs. Continue supportive care. --DVT prophylaxis with Lovenox subQ. Discharge Plan: Home Plan to discharge in: 48 Hours - Advance Directives Does patient have a Living Will: No Does patient have a Durable POA for Healthcare: No - Code Status/Comfort Care Code Status Assessed: Yes Physician Review: Patient Assessed, Agree with Above Assessment and Plan Critical Care: No
[2022-08-28] MEDS ORDERED: Levofloxacin500mg IV 500 MG/100 ML BAG IV SCH (18:00)
[2022-08-28 18:13] LABS: SARS-CoV-2 Antigen Rapid Res Negative (Negative)
[2022-08-28 18:34] LABS: Magnesium 2.2 mg/dL (1.6-2.4); Thyroid Stimulating Hormone 2.09 uIU/mL (0.358-3.740)
[2022-08-28] MEDS: IPRATROPIUM BROM 0.5MG/2.5ML NEB SCH (19:10)
[2022-08-28] MEDS: ALBUTEROL 2.5 MG/3 ML NEB SOL NEB SCH (19:10)
[2022-08-28] MEDS ORDERED: IPRATROPIUM BROM 0.5MG/2.5ML ONE (19:14)
[2022-08-28] MEDS ORDERED: ALBUTEROL 2.5 MG/3 ML NEB SOL ONE (19:14)
[2022-08-28] MEDS ORDERED: FUROSEMIDE 40 MG/4 ML VIAL IV ONE (20:11)
[2022-08-28] MEDS ORDERED: HYDRALAZINE HCL 20 MG/ML VIAL IV PRN (23:43)
[2022-08-29 00:09] VITALS: BMI 42.3
[2022-08-29] MEDS: ALBUTEROL 2.5 MG/3 ML NEB SOL NEB SCH ×4 (01:50→19:40)
[2022-08-29] MEDS: IPRATROPIUM BROM 0.5MG/2.5ML NEB SCH ×4 (01:50→19:40)
[2022-08-29 02:36] LABS: Absolute Lymphocytes (CBC) 2.4 K/uL (0.7-4.9); Hematocrit 46.9 % (39.6-49.0); Lymphocytes % 28.3 % (15.3-44.8); MCV 88.6 fL (80-100); MPV 9.2 fL (7.6-11.3)
[2022-08-29 03:04] LABS: Phosphorus 3.9 mg/dL (2.5-4.9); Potassium 3.7 mEq/L (3.5-5.1)
[2022-08-29] MEDS: GLYCOPYRROLATE 2 MG PO SCH ×2 (09:00→20:59)
[2022-08-29] MEDS: METOPROLOL TAR 50 MG TAB PO SCH ×2 (09:11→20:58)
[2022-08-29] MEDS: ASPIRIN 81 MG CHEWABLE TABLET PO SCH (09:11)
[2022-08-29] MEDS: VALSARTAN 80 MG TAB PO SCH ×2 (09:12→20:58)
[2022-08-29] MEDS: FINASTERIDE 5 MG TAB PO SCH (09:12)
[2022-08-29] MEDS: hydroCHLOROthiazide 12.5 MG CAP PO SCH (09:12)
[2022-08-29] MEDS: NIFEDIPINE XL 60 MG TABLET PO SCH (09:12)
[2022-08-29] MEDS: PANTOPRAZOLE 40MG TABLET PO SCH (09:13)
--- NOTE | 2022-08-29 12:44 | ECHO ---
HEIGHT: 5 ft 10 in WEIGHT: 295 lb 0.009 oz DATE OF STUDY: 08/29/[address]: Antoine Nance 2-DIMENSIONAL: YES M.MODE: YES DOPPLER: YES COLOR FLOW: YES TDS: PORTABLE: YES DEFINITY: BUBBLE STUDY: DIAGNOSIS: BILATERAL LOWER EXTREMITY EDEMA, CHEST PAIN CARDIAC HISTORY: CATHERIZATION: NO SURGERY: NO PROSTHETIC VALVE: NO PACEMAKER: NO MEASUREMENTS (cm) DIASTOLIC (NORMALS) SYSTOLIC (NORMALS) IVSd 1.4 (0.6-1.2) LA Diam 3.1 (1.9-4.0) LVEF 56% LVIDd 4.6 (3.5-5.7) LVIDs 3.3 (2.0-3.5) %FS 29% LVPWd 1.4 (0.6-1.2) Ao Diam 3.2 (2.0-3.7) 2 DIMENSIONAL ASSESSMENT: RIGHT ATRIUM: NORMAL LEFT ATRIUM: NORMAL RIGHT VENTRICLE: NORMAL LEFT VENTRICLE: LEFT VENTRICULAR HYPERTROPHY TRICUSPID VALVE: MILD TRICUSPID REGURGITATION MITRAL VALVE: MILD MITRAL REGURGITATION PULMONIC VALVE: NORMAL AORTIC VALVE: NORMAL PERICARDIAL EFFUSION: NONE AORTIC ROOT: NORMAL LEFT VENTRICULAR WALL MOTION: NORMAL DOPPLER/COLOR FLOW: SEE BELOW COMMENTS: 1. NORMAL LEFT VENTRICULAR EJECTION FRACTION 55-60% 2. NORMAL WALL MOTION 3. MODERATE CONCENTRIC LEFT VENTRICULAR HYPERTROPHY 4. MILD TRICUSPID REGURGITATION 5. MILD MITRAL REGURGITATION TECHNOLOGIST: MICHELLE MAYORGA
--- NOTE | 2022-08-29 13:00 | EKG ---
Test Date: 2022-08-28 Test Time: 15:10:33 Slip Laster: SHAYY MEASUREMENT RESULTS: Intervals: Rate: 75 AK: 152 QRSD: 82 QT: 384 QTc: 428 [place]: P: 57 AK: 152 QRS: 40 T: 41 INTERPRETIVE STATEMENTS: Normal sinus rhythm Possible Left atrial enlargement Borderline ECG Compared to ECG 01/23/2020 13:13:55 Atrial fibrillation no longer present T-wave abnormality no longer present Electronically Signed On 08-29-22 12:58:18 CDT by Quintin Pimentel
--- NOTE | 2022-08-29 13:28 | RAD REPORT ---
EXAM DESCRIPTION: RAD - Chest Single View - 08/29/2022 1:18 pm CLINICAL HISTORY: pneumonia Chest pain. COMPARISON: Chest Single View dated 08/28/2022; Chest Pa And Lat (2 Views) dated 02/26/2020; Chest Pa And Lat (2 Views) dated 02/09/2020; Chest Single View dated 01/21/2020 FINDINGS: Portable technique limits examination quality. Mildly prominent interstitial lung markings. The heart is mildly enlarged in size. No displaced fract ures. IMPRESSION: Mild CHF.
[2022-08-29] MEDS: GUAIFENESIN/CODEINE 5ML UCUP PO PRN ×2 (15:49→21:26)
[2022-08-29] MEDS ORDERED: ENOXAPARIN 40 MG/0.4 ML SQ SCH (17:00)
[2022-08-29] MEDS ORDERED: LEVOFLOXACIN 750MG/D5W 150 ML IV SCH (18:00)
[2022-08-30] MEDS: IPRATROPIUM BROM 0.5MG/2.5ML NEB SCH ×3 (01:55→15:34)
[2022-08-30] MEDS: ALBUTEROL 2.5 MG/3 ML NEB SOL NEB SCH ×3 (01:55→15:34)
[2022-08-30 06:40] LABS: Potassium 3.6 mEq/L (3.5-5.1)
[2022-08-30] MEDS: VALSARTAN 80 MG TAB PO SCH (08:38)
[2022-08-30] MEDS: ASPIRIN 81 MG CHEWABLE TABLET PO SCH (08:39)
[2022-08-30] MEDS: NIFEDIPINE XL 60 MG TABLET PO SCH (08:39)
[2022-08-30] MEDS: GLYCOPYRROLATE 2 MG PO SCH (08:39)
[2022-08-30] MEDS: hydroCHLOROthiazide 12.5 MG CAP PO SCH (08:39)
[2022-08-30] MEDS: PANTOPRAZOLE 40MG TABLET PO SCH (08:39)
[2022-08-30] MEDS: FINASTERIDE 5 MG TAB PO SCH (08:39)
[2022-08-30] MEDS: METOPROLOL TAR 50 MG TAB PO SCH (08:43)
[2022-08-30] MEDS ORDERED: POTASSIUM CL SA 10 MEQ TAB PO ONE (09:00)
[2022-08-30] MEDS ORDERED: HYDROCORTISONE SUC 100 MG INJ IV ONE (09:54)
[2022-08-30] MEDS ORDERED: FUROSEMIDE 20 MG/ 2ML VIAL IV ONE (09:54)
[2022-08-30 16:11] VITALS: O2SAT 94
[2022-08-30 16:27] VITALS: BP 155/74; TEMP 97.3
== END 2022-08-30 17:38 | disposition home or self-care (01) | DRG 194 ==
LOC: ER 14:15 → ERHOLD 17:45 → 4TH 19:19
PROVIDERS: ADMIT Hospitalist; ATTEND Hospitalist
PROC: 5A09357 Assistance with Respiratory Ventilation, Less than 24 Consecutive Hours, Continuous Positive Airway Pressure (ICD-10-PCS; principal; 2022-08-28)
DX: J18.9 Pneumonia, unspecified organism (principal); Z68.41 Body mass index [BMI] 40.0-44.9, adult; E66.09 Other obesity due to excess calories; I12.9 Hypertensive chronic kidney disease with stage 1 through stage 4 chronic kidney disease, or unspecified chronic kidney disease; N18.2 Chronic kidney disease, stage 2 (mild); G47.33 Obstructive sleep apnea (adult) (pediatric); N40.0 Benign prostatic hyperplasia without lower urinary tract symptoms; K21.9 Gastro-esophageal reflux disease without esophagitis; R51.9 Headache, unspecified; R55 Syncope and collapse; Z88.0 Allergy status to penicillin; Z79.899 Other long term (current) drug therapy; Z20.822 Contact with and (suspected) exposure to COVID-19
CPT/HCPCS: 36415; 71045; 80048; 83605; 83735; 83880; 84100; 84439; 84443; 84484; 85025; 85379; 87040; 87811; 93005; 93306; 94640; 94660; 96365; 96366; 99285; J0360; J1650; J1720; J1940; J7613; J7644

== ENCOUNTER 2022-10-26 06:30 | Day surgery (SDC) | payer OTHER ==
[2022-10-25 13:59] LABS: Absolute Lymphocytes (CBC) 2.8 K/uL (0.7-4.9); Hematocrit 44.9 % (39.6-49.0); Lymphocytes % 40.2 % (15.3-44.8); MCV 86.5 fL (80-100); MPV 8.3 fL (7.6-11.3)
[2022-10-25 14:03] LABS: Protime INR 0.93
[2022-10-25 14:11] LABS: Potassium 3.7 mEq/L (3.5-5.1)
[2022-10-26] MEDS ORDERED: VERAPAMIL HCL 10 MG/4 ML VIAL IV ONE (06:53)
[2022-10-26] MEDS ORDERED: LIDOCAINE 1% 20 ML MDV ONE (06:53)
[2022-10-26] MEDS ORDERED: MIDAZOLAM HCL 2 MG/2 ML INJ ONE (06:53)
[2022-10-26] MEDS ORDERED: HEPA 1000U/500MLS 2,000 UNIT/1,000 ML BAG IV ONE (06:53)
[2022-10-26] MEDS ORDERED: HEPARIN 5000 UNIT/ML 1 ML VIAL ONE (06:53)
[2022-10-26] MEDS ORDERED: ASPIRIN 325 MG TAB ONE (06:54)
[2022-10-26] MEDS ORDERED: NITROGLYCERIN/D5W 25 MG/250 ML BTL IV ONE (06:54)
[2022-10-26] MEDS ORDERED: TICAGRELOR 90 MG TABLET PO ONE (06:54)
[2022-10-26] MEDS ORDERED: NITROGLYCERIN 100 MCG/ML SYR (for cath lab use only) IV ONE (06:54)
[2022-10-26] MEDS ORDERED: ATROPINE SULF 1 MG/10 ML SYR IV ONE (06:54)
[2022-10-26] MEDS ORDERED: CLOPIDOGREL 75 MG TABLET ONE (06:54)
[2022-10-26] MEDS ORDERED: HEPARIN 10,000 UNIT/10 ML VIAL IV ONE (06:54)
[2022-10-26] MEDS ORDERED: FENTANYL CITR 100 MCG/2 ML ONE (06:56)
[2022-10-26] MEDS ORDERED: NA CHLORIDE 0.9% 500 ML ONE (07:02)
--- NOTE | 2022-10-26 08:52 | OP ---
Date of Procedure: 10/26/2022 Surgeon: CAR KAPLAN Procedures Performed: 1.Selective coronary angiogram. 2.Left heart catheterization. Indication: Abnormal stress test. Access: Right radial artery 6-[place] closed with TR band. Complications: None. Bleeding: Less than 20 mL. Anesthesia: Total sedation time was 15 minutes. Description Of Procedure: After risks, benefits, alternatives were explained, the patient agreed to the procedure and signed informed consent. The patient was brought into the cardiac catheterization laboratory, prepped and draped in the usual sterile fashion. Then, I accessed right radial artery us ing pediatric micropuncture kit and ultrasound guidance and placed a 6-[place] Slender sheath and took 5-[place]pping 4.0 catheter into the aortic root, engaged the left main, took standard views and the n the RCA, took standard views and then pushed the catheter over the wire into the LV, measured the L VEDP, pullback did not record any gradient, and the catheter was removed, sheath was removed, TR band was placed with good hemostasis. Findings: 1.Left main; very large and very long with 20% stenosis, but the artery is very large. 2.LAD, moderate size with luminal irregularities, normal diagonal branches. 3.Left circumflex; very large and dominant circulation. No significant disease. 4.RCA; it is moderate size, nondominant, and no significant disease. 5.Elevated LVEDP at 22 mmHg. Conclusion: 1.Mild nonobstructive coronary artery disease. 2.Elevated LVEDP. Recommendation: Medical management and diuretics. SR/MODL Voice ID: [id number] Report ID: [id number]
[2022-10-26 10:02] VITALS: BP 153/81; O2SAT 95
== END 2022-10-26 10:05 | disposition home or self-care (01) ==
LOC: CCL 06:30
PROVIDERS: ATTEND Internal Medicine
DX: I25.10 Atherosclerotic heart disease of native coronary artery without angina pectoris (principal); I48.0 Paroxysmal atrial fibrillation; E78.2 Mixed hyperlipidemia; E66.01 Morbid (severe) obesity due to excess calories; Z68.41 Body mass index [BMI] 40.0-44.9, adult; Z79.899 Other long term (current) drug therapy; Z88.0 Allergy status to penicillin
CPT/HCPCS: 85025; 80048; 36415; 85610; 85730; 93458; 76937; C1893; Q9966; J1644; J2001; J2250; J3010; J7040; J0461